=== PATIENT | female | born 1955 | race Caucasian/White ===

== ENCOUNTER 2023-04-06 09:09 | Observation (INO) | payer MEDICARE ==
[~2023-04-06] VITALS: Ht 152 cm; Wt 54.0 kg
--- NOTE | 2023-04-06 09:18 | ED Chest Pain ---
General Chief Complaint: Chest Pain Stated Complaint: RIGHT SIDED- POSSIBLE HEART ATTACK Source: patient Exam Limitations: no limitations History of Present Illness Date Seen by Provider: Apr 06, 2023 Time Seen by Provider: 09:17 Initial Comments Patient is a 68-year-old female with a history of coronary artery disease and smoking who presents to the emergency room with a chief complaint of right arm pain. Patient states that she woke up around 530 or 6 AM with right arm pain and was concerned that she might of been having a heart attack. She endorses shortness of breath and some nausea with the pain. She rates it at a "6". It does not radiate she does not have chest pain, jaw pain or back pain. She last had a stent placed about 10 years ago. She states she is compliant with her daily medications. Her epidemiology intern is Dr. Mosley at [facility] in [place]. Patient also states that her right arm and right leg have felt a little weak intermittently over the last 2 days. She does have a mild headache currently. She has no prior history of stroke. She denies recent illness such as fevers, chills, productive cough. No abdominal pain, nausea or vomiting. No diarrhea or urinary complaints. No swelling in her legs or calf pain. She is a chronic daily smoker. She states that she waited until her son and xthwkxya-kn-rel got out of bed this morning before coming to the emergency room. She did take 1 sublingual nitroglycerin prior to arrival for the arm pain. She did not take any of her other prescribed daily medications. We will hold aspirin until we can evaluate her CT head noncontrast. Timing/Duration: 1-3 hours Severity/Quality: moderate, aching Location: other (right arm) Radiation: no radiation Activities at Onset: sleep Prior CP/Workup: cardiac cath ASA po MACARONI PRESS OPERATOR: No NTG SL MACARONI PRESS OPERATOR: No Associated Symptoms: nausea/vomiting, shortness of breath Allergies and Home Medications Allergies Coded Allergies: No Known Drug Allergies (Unverified , 04/06/23) Patient Home Medication List Home Medication List Reviewed: Yes Amlodipine Besylate (Amlodipine Besylate) 5 Mg Tablet, 2.5 MG PO DAILY, (Reported) Entered as Reported by: AREN LOUIS on 04/06/23 3261 Last Action: Reviewed Aspirin (Aspirin EC) 81 Mg Tablet., 81 MG PO DAILY Prescribed by: ARUNA MORA on 04/08/23941 Atorvastatin Calcium (Atorvastatin Calcium) 40 Mg Tablet, 40 MG PO DAILY, (Reported) Entered as Reported by: AREN LOUIS on 04/06/231428 Last Action: Reviewed Carvedilol (Carvedilol) 3.125 Mg Tablet, 3.125 MG PO BID Prescribed by: ARUNA MORA on 04/08/23941 Empagliflozin (Jardiance) 10 Mg Tablet, 10 MG PO DAILY Prescribed by: ARUNA MORA on 04/08/23941 Losartan Potassium (Losartan Potassium) 25 Mg Tablet, 25 MG PO DAILY Prescribed by: ARUNA MORA on 04/08/23941 Nitroglycerin (Nitroglycerin) 0.4 Mg Tab.subl, 0.4 MG PO for CHEST PAIN (ANGINA), (Reported) Entered as Reported by: AREN LOUIS on 04/06/231428 Last Action: Reviewed Ticagrelor (Brilinta) 90 Mg Tablet, 90 MG PO BID Prescribed by: ARUNA MORA on 04/08/23941 Discontinued Medications Clopidogrel Bisulfate (Clopidogrel) 75 Mg Tablet, 75 MG PO DAILY, (Reported) Entered as Reported by: AREN LOUIS on 04/06/231428 Last Action: Reviewed Review of Systems Review of Systems Constitutional: see HPI EENTM: No Symptoms Reported Respiratory: Shortness of Air Cardiovascular: No Symptoms Reported Gastrointestinal: Nausea Genitourinary: No Symptoms Reported Musculoskeletal: other (right arm pain) Skin: no symptoms reported Psychiatric/Neurological: Weakness (right arm and leg) All Other Systems Reviewed Negative Unless Noted: Yes Physical Exam Vital Signs Vital Signs - First Documented 04/06/23 09:10 Pulse 84 Resp 18 B/P (MAP) 142/70 (94) Pulse Ox 97 Capillary Refill : Height, Weight, BMI Height: '" Weight: lbs. oz. kg; BMI Method: General Appearance: No Apparent Distress, Thin HEENT: PERRL/EOMI Neck: Normal Inspection Respiratory: Lungs Clear, No Accessory Muscle Use, No Respiratory Distress, Decreased Breath Sounds Cardiovascular: Regular Rate, Rhythm, Normal Peripheral Pulses Gastrointestinal: Non Tender, Soft Extremity: Normal Capillary Refill, Normal Inspection, Normal Range of Motion, Non Tender, No Calf Tenderness, No Pedal Edema Neurologic/Psychiatric: Alert, Oriented x3, Normal Mood/Affect, Motor Weakness (minimal weakness to right arm; normal strength bilat LE) Skin: Normal Color, Warm/Dry Progress/Results/Core Measures Results/Orders Lab Results Laboratory Tests Test 04/06/23 09:23 Range/Units White Blood Count 9.6 4.3-11.0 10^3/uL Red Blood Count 5.06 3.80-5.11 10^6/uL Hemoglobin 16.2 H 11.5-16.0 g/dL Hematocrit 48 35-52 % Mean Corpuscular Volume 94 80-99 fL Mean Corpuscular Hemoglobin 32 25-34 pg Mean Corpuscular Hemoglobin Concent 34 32-36 g/dL Red Cell Distribution Width 11.8 10.0-14.5 % Platelet Count 241 130-400 10^3/uL Mean Platelet Volume 9.4 9.0-12.2 fL Immature Granulocyte % (Auto) 0 % Neutrophils (%) (Auto) 66 42-75 % Lymphocytes (%) (Auto) 26 12-44 % Monocytes (%) (Auto) 5 0-12 % Eosinophils (%) (Auto) 1 0-10 % Basophils (%) (Auto) 1 0-10 % Neutrophils # (Auto) 6.4 1.8-7.8 10^3/uL Lymphocytes # (Auto) 2.5 1.0-4.0 10^3/uL Monocytes # (Auto) 0.5 0.0-1.0 10^3/uL Eosinophils # (Auto) 0.1 0.0-0.3 10^3/uL Basophils # (Auto) 0.1 0.0-0.1 10^3/uL Immature Granulocyte # (Auto) 0.0 0.0-0.1 10^3/uL Prothrombin Time 13.4 12.2-14.7 SEC INR Comment 1.0 0.8-1.4 Activated Partial Thromboplast Time 27 24-35 SEC D-Dimer 0.28 0.00-0.49 UG/ML Sodium Level 142 135-145 MMOL/L Potassium Level 4.0 3.6-5.0 MMOL/L Chloride Level 109 H 98-107 MMOL/L Carbon Dioxide Level 23 21-32 MMOL/L Anion Gap 10 5-14 MMOL/L Blood Urea Nitrogen 14 7-18 MG/DL Creatinine 0.99 0.60-1.30 MG/DL Estimat Glomerular Filtration Rate 62 BUN/Creatinine Ratio 14 Glucose Level 109 H 70-105 MG/DL Calcium Level 9.6 8.5-10.1 MG/DL Corrected Calcium 9.4 8.5-10.1 MG/DL Magnesium Level 1.9 1.6-2.4 MG/DL Total Bilirubin 0.6 0.1-1.0 MG/DL Aspartate Amino Transf (AST/SGOT) 20 5-34 U/L Alanine Aminotransferase (ALT/SGPT) 17 0-55 U/L Alkaline Phosphatase 111 40-136 U/L Troponin I < 0.028 <0.028 NG/ML Total Protein 6.8 6.4-8.2 GM/DL Albumin 4.2 3.2-4.5 GM/DL My Orders Orders - SONJA VERA MD Ekg Tracing (04/06/23 09:17) Cbc With Automated Diff (04/06/23 09:30) Magnesium (04/06/23 09:30) Chest 1 View, Ap/Pa Only (04/06/23 09:30) Comprehensive Metabolic Panel (04/06/23 09:30) Protime With Inr (04/06/23 09:30) Partial Thromboplastin Time (04/06/23 09:30) O2 (04/06/23 09:30) Monitor-Rhythm Ecg Trace Only (04/06/23 09:30) Lipid Panel (04/07/23 06:00) Ed Iv/Invasive Line Start (04/06/23 09:30) Troponin I Tash (04/06/23 09:30) Ct Head Wo-R/O Stroke (04/06/23 09:30) Fibrin Degradation Products (04/06/23 09:30) Aspirin Chewable Tablet (Baby Aspirin Ch (04/06/23 10:45) Ed Admission (Communication) (04/06/23 11:15) Nicotine Patch (Nicoderm Patch) (04/06/23 11:15) Code/Resuscitation (04/06/23 11:15) Medications Given in ED Vital Signs/I&O 04/06/23 09:10 Pulse 84 Resp 18 B/P (MAP) 142/70 (94) Pulse Ox 97 Progress Progress Note : Time: 11:38 Progress Note Patient seen and evaluated by me, evaluation today includes physical exam, "chest pain protocol" to include CBC, Chem-12, coags, EKG, chest x-ray and troponin level, ddimer and CT head without contrast. Pertinent physical exam findings thin elderly 68-year-old female in no acute distress. Heart is regular in the 80s, lungs are diminished throughout, no crackles, rales or wheezes. No lower extremity edema. Abdominal exam is benign. No focal neurologic deficits. Vital signs reviewed and within normal limits. Not hypoxic on room air. Differential diagnosis based on history and physical exam, acute coronary syndrome, acute exacerbation of COPD, bronchitis, TIA, musculoskeletal pain. Labs, EKG and imaging independently reviewed reviewed and interpreted by me. EKG shows normal sinus rhythm at 81 bpm with a left bundle branch block. No other EKGs available in the system for comparison. Chest x-ray read by the radiologist shows mild increased pulmonary vascular congestion. CBC is normal. Chem-12 is normal, troponin is undetectable. Coags and D-dimer are within normal limits. CT head noncontrast showed no acute intracranial abnormality. Patient is treated in the emergency department with 324 mg of baby aspirin. I discussed the presentation, work-up and evaluation with Dr. Kent, epidemiology intern on-call. Will admit observation for serial troponins and further monitoring. Case was also discussed with Dr. Carrillo on for the hospitalist service. Patient has no concerning findings for NSTEMI/ACS at this time. She is not wheezing or hypoxic. No concerning findings for bronchitis. She may have issues with her right sided intermittent weakness with TIAs. She is on Plavix. She tells me she has never had her carotids evaluated. She is concerned about not being able to smoke. Nicotine patch has been ordered. Further per Dr. Carrillo and Dr. Kent. Initial ECG Impression Date: Apr 06, 2023 Initial ECG Impression Time: 09:20 Initial ECG Rate: 81 Initial ECG Rhythm: Normal Sinus Initial ECG Intervals CO 155 QRS 147 QTc 440 Comment no ectopy; LBBB; slight ST depression/t wave inversion V6 Diagnostic Imaging Comments [facility] [place], [place] NAME: SHERICE PÉREZ [facility] REC#: [id number] PT STATUS: REG ER : 1955 PHYSICIAN: SONJA VERA MD ADMIT DATE: 04/06/23/ER Signed Date of Exam:04/06/23 CHEST 1 VIEW, AP/PA ONLY EXAMINATION: Chest 1 view HISTORY: Chest pain COMPARISON: None available. FINDINGS: The lungs are hyperinflated. There is mild edema. No pneumonia. No pleural effusion or pneumothorax. Heart size is normal. IMPRESSION: 1. Mild edema. Dictated by: Dictated on workstation # [email or web address] Dict: 04/06/23 1019 Trans: 04/06/23 1025 ARELIS [id number] Interpreted by: MY LITTLE MD Electronically signed by: MY LITTLE MD 04/06/23 1025 Diagonstic Imaging: CT Comments [facility] [place], [place] NAME: SHERICE PÉREZ [facility] REC#: [id number] PT STATUS: REG ER : 1955 PHYSICIAN: SONJA VERA MD ADMIT DATE: 04/06/23/ER Signed Date of Exam:04/06/23 CT HEAD WO-R/O STROKE EXAMINATION: CT head without contrast. TECHNIQUE: Multiple contiguous axial images were obtained through the brain without the use of intravenous contrast. All CT scans use one or more of the following dose optimizing techniques: automated exposure control, MA and/or KvP adjustment based on patient size and exam type or iterative reconstruction. HISTORY: Neuro deficit COMPARISON: None available. FINDINGS: The alston-white matter differentiation is normal. No mass effect or midline shift. The ventricles are normal in size and configuration. Basilar cisterns are patent. There are no intra- or extra-axial fluid collections. There is no intracranial hemorrhage. The orbits are normal. Paranasal sinuses are normal. Mastoid air cells are clear. No soft tissue abnormality is seen. No osseus lesions or fractures are seen. IMPRESSION: 1. No acute intracranial abnormality. Dictated by: Dictated on workstation # [email or web address] Dict: 04/06/23 1021 Trans: 04/06/23 1023 [facility] [id number] Interpreted by: MY LITTLE MD Electronically signed by: MY LITTLE MD 04/06/23 1023 Counseling-Symptomatic: 3-10 Minutes Follow-up with PCP to: Discuss Further Options CP/AMI: Aspirin, ECG CVA/SNYCOPE: ECG Departure Communication (Admissions) Time/Spoke to Admitting Phy: 11:[address] Carrillo, hospitalist (admit to cardiac step down) Impression Primary Impression: Right arm pain Additional Impressions: History of CAD (coronary artery disease) Tobacco abuse Disposition: ADMITTED INPATIENT Condition: Stable Admissions Decision to Admit Reason: Admit from ER (General) Decision to Admit/Date: Apr 06, 2023 Time/Decision to Admit Time: 11:40 Departure-Patient Inst. Scripts Empagliflozin (Jardiance) 10 Mg Tablet 10 MG PO DAILY for 30 Days, #30 TAB Prov: ARUNA MORA MD 04/08/23 Aspirin (Aspirin EC) 81 Mg Tablet.dr 81 MG PO DAILY for 30 Days, #30 TAB Prov: ARUNA MORA MD 04/08/23 Losartan Potassium (Losartan Potassium) 25 Mg Tablet 25 MG PO DAILY for 30 Days, #30 TAB Prov: ARNUA MORA MD 04/08/23 Carvedilol (Carvedilol) 3.125 Mg Tablet 3.125 MG PO BID for 30 Days, #60 TAB Prov: ARUNA MORA MD 04/08/23 Ticagrelor (Brilinta) 90 Mg Tablet 90 MG PO BID for 30 Days, #60 TAB Prov: ARUNA MORA MD 04/08/23 SONJA VERA MD Apr 06, 2023 09:18
[2023-04-06 09:39] LABS: BASOPHILS # (AUTO) 0.1 10^3/uL (0.0-0.1); BASOPHILS % (AUTO) 1 % (0-10); EOSINOPHILS # (AUTO) 0.1 10^3/uL (0.0-0.3); EOSINOPHILS % (AUTO) 1 % (0-10); HEMATOCRIT 48 % (35-52); HEMOGLOBIN 16.2 g/dL (11.5-16.0); LYMPHOCYTES # (AUTO) 2.5 10^3/uL (1.0-4.0); LYMPHOCYTES % (AUTO) 26 % (12-44); MEAN CORPUSCULAR HEMOGLOBIN 32 pg (25-34); MEAN CORPUSCULAR HGB CONC 34 g/dL (32-36); MEAN CORPUSCULAR VOLUME 94 fL (80-99); MEAN PLATELET VOLUME 9.4 fL (9.0-12.2); MONOCYTES # (AUTO) 0.5 10^3/uL (0.0-1.0); MONOCYTES % (AUTO) 5 % (0-12); NEUTROPHILS # (AUTO) 6.4 10^3/uL (1.8-7.8); NEUTROPHILS % (AUTO) 66 % (42-75); PLATELET COUNT 241 10^3/uL (130-400); WHITE BLOOD COUNT 9.6 10^3/uL (4.3-11.0)
[2023-04-06 09:43] LABS: ALBUMIN 4.2 GM/DL (3.2-4.5); CHLORIDE 109 MMOL/L (98-107); SODIUM 142 MMOL/L (135-145)
[2023-04-06 09:44] LABS: CALCIUM 9.6 MG/DL (8.5-10.1)
[2023-04-06 09:45] LABS: GLUCOSE 109 MG/DL (70-105); TOTAL PROTEIN 6.8 GM/DL (6.4-8.2)
[2023-04-06 09:46] LABS: CARBON DIOXIDE 23 MMOL/L (21-32); PROTHROMBIN TIME PATIENT 13.4 SEC (12.2-14.7)
[2023-04-06 09:47] LABS: BILIRUBIN,TOTAL 0.6 MG/DL (0.1-1.0)
[2023-04-06 09:49] LABS: ALKALINE PHOSPHATASE 111 U/L (40-136); CREATININE SERUM 0.99 MG/DL (0.60-1.30); FIBRIN DEGRADATION PRODUCTS 0.28 UG/ML (0.00-0.49); GFR ESTIMATED 62
[2023-04-06 09:50] LABS: BUN/CREATININE RATIO 14
[2023-04-06 09:52] LABS: ALANINE AMINOTRANSFERASE 17 U/L (0-55); MAGNESIUM 1.9 MG/DL (1.6-2.4)
--- NOTE | 2023-04-06 10:22 | Diagnostic Imaging Report ---
EXAMINATION: Chest 1 view HISTORY: Chest pain COMPARISON: None available. FINDINGS: The lungs are hyperinflated. There is mild edema. No pneumonia. No pleural effusion or pneumothorax. Heart size is normal. IMPRESSION: 1. Mild edema. Dictated by: Dictated on workstation # [email or web address]
--- NOTE | 2023-04-06 10:25 | Diagnostic Imaging Report ---
EXAMINATION: CT head without contrast. TECHNIQUE: Multiple contiguous axial images were obtained through the brain without the use of intravenous contrast. All CT scans use one or more of the following dose optimizing techniques: automated exposure control, MA and/or KvP adjustment based on patient size and exam type or iterative reconstruction. HISTORY: Neuro deficit COMPARISON: None available. FINDINGS: The alston-white matter differentiation is normal. No mass effect or midline shift. The ventricles are normal in size and configuration. Basilar cisterns are patent. There are no intra- or extra-axial fluid collections. There is no intracranial hemorrhage. The orbits are normal. Paranasal sinuses are normal. Mastoid air cells are clear. No soft tissue abnormality is seen. No osseus lesions or fractures are seen. IMPRESSION: 1. No acute intracranial abnormality. Dictated by: Dictated on workstation # [email or web address]
[2023-04-06] MEDS ORDERED: ASPIRIN 81 MG CHEW (CHILDREN'S ASA) PO ONE (10:45)
[2023-04-06] MEDS ORDERED: NICOTINE 21 MG (NICODERM) PATCH TD ONE (11:15)
--- NOTE | 2023-04-06 12:11 | History & Physical-Hospitalist ---
History of Present Illness HPI/Chief Complaint Pt is a 89yoCF with a PMH of CAD and stent, tobacco abuse, HLD who presented to the ER due to chest pain and right sided weakness. She states the right sided weakness started 3 days ago and she didn't think much of it but it has persistent. She denies any specific deficits but that it's just not "up to par." She developed chest pain last night and then had right arm pain as well. She decided to seek evaluation in the ER today because it persistent. She did take a nitro and it helped. Given her risk factors decision was made to admit. Source: patient Date Seen 04/06/23 Time Seen by a Provider: 12:04 Attending Physician No,Local Physician PCP Admitting Physician: Larissa Carrillo MD Attending Physician: Larissa Carrillo MD Referring Physician Date of Admission Apr 06, 2023 at 11:18 Home Medications & Allergies Home Medications Reviewed patient Home Medication Reconciliation performed by pharmacy medication reconciliations radiocommunications technician and/or nursing. Patients Allergies have been reviewed. Allergies Allergies Coded Allergies No Known Drug Allergies (Unverified04/06/23) Past Ojffzpr-Iomuif-Qtyhnr Hx Patient Social History Tobacco Use?: Yes Tobacco type used: Cigarettes Smoking Status: Current Everyday Smoker Substance use?: No Alcohol Use?: No Pt feels they are or have been: No Current Status Advance Directives: No Communicates: Verbally Primary Language: Latvian Preferred Spoken Language: Latvian Is interpretation needed?: No Implanted or Applied Medical D: Stents Past Medical History Coronary Artery Disease, High Cholesterol Family Medical History Reviewed Nursing Family Hx No Pertinent Family Hx Review of Systems Constitutional: see HPI Physical Exam Physical Exam Vital Signs Vital Signs - First Documented 04/06/23 09:10 Pulse 84 Resp 18 B/P (MAP) 142/70 (94) Pulse Ox 97 Capillary Refill : Less Than 3 Seconds Height, Weight, BMI Height: '" Weight: lbs. oz. kg; 17.00 BMI Method: General Appearance: No Apparent Distress, Chronically ill, Thin Respiratory: Lungs Clear, No Respiratory Distress Cardiovascular: Regular Rate, Rhythm, No Murmur Gastrointestinal: Normal Bowel Sounds, Non Tender, Soft Extremity: No Calf Tenderness, No Pedal Edema Neurologic/Psychiatric: Alert, Oriented x3; No Aphasia, No Facial Droop; Other (moves all extremities without difficulty, no appreciable deficit) Results Results/Procedures Labs Laboratory Tests 04/06/23 09:23 Patient resulted labs reviewed. Imaging: Reviewed Imaging Report [facility] [place] [place] NAME: SHERICE PÉREZ [facility] REC#: [id number] PT STATUS: REG ER : 1955 PHYSICIAN: SONJA VERA MD ADMIT DATE: 04/06/23/ER Signed Date of Exam:04/06/23 CHEST 1 VIEW, AP/PA ONLY EXAMINATION: Chest 1 view HISTORY: Chest pain COMPARISON: None available. FINDINGS: The lungs are hyperinflated. There is mild edema. No pneumonia. No pleural effusion or pneumothorax. Heart size is normal. IMPRESSION: 1. Mild edema. Dictated by: Dictated on workstation # [email or web address] Dict: 04/06/23 1019 Trans: 04/06/23 1025 [facility] [id number] Interpreted by: MY LITTLE MD Electronically signed by: MY LITTLE MD 04/06/23 1025 [facility] [place] [place] NAME: SHERICE PÉREZ [facility] REC#: [id number] PT STATUS: REG ER : 1955 PHYSICIAN: SONJA VERA MD ADMIT DATE: 04/06/23/ER Signed Date of Exam:04/06/23 CT HEAD WO-R/O STROKE EXAMINATION: CT head without contrast. TECHNIQUE: Multiple contiguous axial images were obtained through the brain without the use of intravenous contrast. All CT scans use one or more of the following dose optimizing techniques: automated exposure control, MA and/or KvP adjustment based on patient size and exam type or iterative reconstruction. HISTORY: Neuro deficit COMPARISON: None available. FINDINGS: The alston-white matter differentiation is normal. No mass effect or midline shift. The ventricles are normal in size and configuration. Basilar cisterns are patent. There are no intra- or extra-axial fluid collections. There is no intracranial hemorrhage. The orbits are normal. Paranasal sinuses are normal. Mastoid air cells are clear. No soft tissue abnormality is seen. No osseus lesions or fractures are seen. IMPRESSION: 1. No acute intracranial abnormality. Dictated by: Dictated on workstation # [email or web address] Dict: 04/06/23 1021 Trans: 04/06/23 1023 [facility] [id number] Interpreted by: MY LITTLE MD Electronically signed by: MY LITTLE MD 04/06/23 1023 Assessment/Plan Admission Diagnosis Chest pain Admission Status: Observation Reason for Inpatient Admission: see below Assessment and Plan Chest pain CAD with h/o of stents HLD HTN Troponin negative Received ASA in the ER Cardiology consulted, appreciate recs Trend troponins Telemetry Continue home meds when med rec done Right sided weakness No appreciable on exam COnsider MRI in AM Outside the window for TPA CT head with no acute findings PT/OT in AM Diagnosis/Problems Diagnosis/Problems (1) Chest pain (2) Weakness of right upper extremity (3) Tobacco abuse (4) History of coronary artery stent placement Clinical Quality Measures AMI/AHF: ASA po Prior to arrival: No Smoking Cessation Counseling: Counseling-Symptomatic: 3-10 Minutes LARISSA CARRILLO MD Apr 06, 2023 12:11
[2023-04-06] MEDS ORDERED: NITROGLYCERIN 0.4 MG SL TABS BTL 25'S SL PRN (12:15)
[2023-04-06] MEDS ORDERED: BENZONATATE 100 MG (TESSALON) CAPSULE PO PRN (12:15)
[2023-04-06] MEDS ORDERED: ACETAMINOPHEN 500 MG TAB (TYLENOL) PO PRN (12:15)
[2023-04-06] MEDS ORDERED: ONDANSETRON 4 MG/2 ML (SDV) Z0FRAN IVP PRN (12:15)
[2023-04-06] MEDS ORDERED: morphine INJ 4 MG/ML 1 ML (VIAL/SYRINGE) IV PRN (12:15)
[2023-04-06] MEDS ORDERED: PATIENT MAY USE OWN MEDS, ALL PO SCH (12:15)
[2023-04-06] MEDS ORDERED: ANTACID SUSP 30 ML UDC (MYLANTA) PO PRN (12:15)
[2023-04-06] MEDS ORDERED: MELATONIN 3 MG TABLET PO PRN (12:15)
[2023-04-06] MEDS ORDERED: ONDANSETRON 4 MG/2 ML (SDV) Z0FRAN IV PRN (12:15)
[2023-04-06] MEDS ORDERED: MILK OF MAGNESIA 400 MG/5 ML 30 ML UDC PO PRN (12:15)
[2023-04-06] MEDS ORDERED: CLOPIDOGREL 75 MG (PLAVIX) TABLET PO NR ×2 (12:30→15:00)
[2023-04-06] MEDS ORDERED: PATIENT MAY USE OWN MEDS, ALL MC SCH (12:30)
[2023-04-06] MEDS ORDERED: ATOR40TA70 PO (14:29)
[2023-04-06] MEDS ORDERED: CLOP75TA28 PO (14:29)
[2023-04-06] MEDS ORDERED: NITR0.4T42 PO (14:29)
[2023-04-06] MEDS ORDERED: AMLO-250 PO ×2 (14:29→14:47)
[2023-04-06 15:50] VITALS: BP 117/53
--- NOTE | 2023-04-06 17:37 | Consultation-Cardiology ---
HPI-Cardiology Cardiology Consultation: Date of Consultation 04/06/23 Date of Admission Attending Physician Suzy,Local Physician Admitting Physician Admitting Physician: Lucinda Carrillo MD Attending Physician: Lucinda Carrillo MD Consulting Physician Penelope MORSE MD HPI: Time Seen by a Provider: 17:34 Chief Complaint: Chest discomfort This is a 68-year-old lady with history of active smoking, CAD, PCI. She follows with milk treater in [place]. She presents with mild chest discomfort and right upper extremity weakness. She is not complaining of any chest discomfort when I saw the patient. Review of Systems-Cardiology Review of Systems Constitutional: no symptoms reported Eyes: no symptoms reported Ears/Nose/Throat: no symptoms reported Respiratory: no symptoms reported Cardiovascular: chest pain Gastrointestinal: no symptoms reported Psychiatric/Neurological: weakness Hematologic: no symptoms reported All Other Systems Reviewed Negative Unless Noted: Yes AXB-Ixuybo-Iuqvyr Hx Patient Social History Smoking Status: Current Everyday Smoker Alcohol Use?: No Pt feels they are or have been: No Tobacco type used: Cigarettes Past Medical History PMH As described under Assessment. Allergies and Home Medications Allergies Coded Allergies: No Known Drug Allergies (Unverified , 04/06/23) Patient Home Medication List Home Medication List Reviewed: Yes Amlodipine Besylate (Amlodipine Besylate) 5 Mg Tablet, 2.5 MG PO DAILY, (Reported) Entered as Reported by: AREN LOUIS on 04/06/23 1447 Last Action: New Order Atorvastatin Calcium (Atorvastatin Calcium) 40 Mg Tablet, 40 MG PO DAILY, (Reported) Entered as Reported by: AREN LOUIS on 04/06/231428 Last Action: New Order Clopidogrel Bisulfate (Clopidogrel) 75 Mg Tablet, 75 MG PO DAILY, (Reported) Entered as Reported by: AREN LOUIS on 04/06/231428 Last Action: New Order Nitroglycerin (Nitroglycerin) 0.4 Mg Tab.subl, 0.4 MG PO for CHEST PAIN (ANNIKA NA), (Reported) Entered as Reported by: AREN LOUIS on 04/06/231428 Last Action: New Order Exam Vital Signs Vital Signs Date Time Temp Pulse Resp B/P (MAP) Pulse Ox O2 Delivery O2 Flow Rate FiO2 04/06/23 15:50 36.6 66 20 117/53 (74) 95 Room Air Physical Exam Constitutional: No distress. Respiratory: Bilateral lung sounds heard. CVS: Normal heart sounds. Regular rate. No significant pedal edema. Labs Laboratory Tests Test 04/06/23 09:23 Range/Units White Blood Count 9.6 4.3-11.0 10^3/uL Red Blood Count 5.06 3.80-5.11 10^6/uL Hemoglobin 16.2 H 11.5-16.0 g/dL Hematocrit 48 35-52 % Mean Corpuscular Volume 94 80-99 fL Mean Corpuscular Hemoglobin 32 25-34 pg Mean Corpuscular Hemoglobin Concent 34 32-36 g/dL Red Cell Distribution Width 11.8 10.0-14.5 % Platelet Count 241 130-400 10^3/uL Mean Platelet Volume 9.4 9.0-12.2 fL Immature Granulocyte % (Auto) 0 % Neutrophils (%) (Auto) 66 42-75 % Lymphocytes (%) (Auto) 26 12-44 % Monocytes (%) (Auto) 5 0-12 % Eosinophils (%) (Auto) 1 0-10 % Basophils (%) (Auto) 1 0-10 % Neutrophils # (Auto) 6.4 1.8-7.8 10^3/uL Lymphocytes # (Auto) 2.5 1.0-4.0 10^3/uL Monocytes # (Auto) 0.5 0.0-1.0 10^3/uL Eosinophils # (Auto) 0.1 0.0-0.3 10^3/uL Basophils # (Auto) 0.1 0.0-0.1 10^3/uL Immature Granulocyte # (Auto) 0.0 0.0-0.1 10^3/uL Prothrombin Time 13.4 12.2-14.7 SEC INR Comment 1.0 0.8-1.4 Activated Partial Thromboplast Time 27 24-35 SEC D-Dimer 0.28 0.00-0.49 UG/ML Sodium Level 142 135-145 MMOL/L Potassium Level 4.0 3.6-5.0 MMOL/L Chloride Level 109 H 98-107 MMOL/L Carbon Dioxide Level 23 21-32 MMOL/L Anion Gap 10 5-14 MMOL/L Blood Urea Nitrogen 14 7-18 MG/DL Creatinine 0.99 0.60-1.30 MG/DL Estimat Glomerular Filtration Rate 62 BUN/Creatinine Ratio 14 Glucose Level 109 H 70-105 MG/DL Calcium Level 9.6 8.5-10.1 MG/DL Corrected Calcium 9.4 8.5-10.1 MG/DL Magnesium Level 1.9 1.6-2.4 MG/DL Total Bilirubin 0.6 0.1-1.0 MG/DL Aspartate Amino Transf (AST/SGOT) 20 5-34 U/L Alanine Aminotransferase (ALT/SGPT) 17 0-55 U/L Alkaline Phosphatase 111 40-136 U/L Troponin I < 0.028 <0.028 NG/ML Total Protein 6.8 6.4-8.2 GM/DL Albumin 4.2 3.2-4.5 GM/DL ECG Impression ECG Initial ECG Rhythm: Normal Sinus Initial ECG Intervals Left bundle branch block A/P-Cardiology Assessment/Admission Diagnosis Chest pain, CAD/PCI, Active smoking, right-sided weakness Plan Serial troponin. First test is negative. Continue dual antiplatelet therapy. If second set of troponin is negative do Lexiscan stress test tomorrow. Smoking cessation was strongly recommended. Work-up of right-sided weakness deferred to medicine. Penelope MORSE MD Apr 06, 2023 17:37
[2023-04-06 19:44] VITALS: BP 121/69
[2023-04-06 23:23] VITALS: BP 108/76
[2023-04-07] VITALS (7 sets, daily range): BP systolic 105–128; BP diastolic 56–77
[2023-04-07 05:26] LABS: HEMATOCRIT 45 % (35-52); HEMOGLOBIN 15.5 g/dL (11.5-16.0); MEAN CORPUSCULAR HEMOGLOBIN 32 pg (25-34); MEAN CORPUSCULAR HGB CONC 35 g/dL (32-36); MEAN CORPUSCULAR VOLUME 93 fL (80-99); MEAN PLATELET VOLUME 9.9 fL (9.0-12.2); PLATELET COUNT 218 10^3/uL (130-400); WHITE BLOOD COUNT 7.9 10^3/uL (4.3-11.0)
[2023-04-07 05:39] LABS: POTASSIUM 3.9 MMOL/L (3.6-5.0)
[2023-04-07 05:45] LABS: CREATININE SERUM 0.97 MG/DL (0.60-1.30)
[2023-04-07] MEDS ORDERED: CATHETER FLUSH 10 ML SYR IVP PRN ×2 (07:30)
[2023-04-07] MEDS ORDERED: REGADENOSON 0.4 MG/5 ML SYR (LEXISCAN) IV ONE ×2 (08:55→09:30)
[2023-04-07] MEDS ORDERED: CLOPIDOGREL 75 MG (PLAVIX) TABLET PO SCH (09:00)
[2023-04-07] MEDS ORDERED: ASPIRIN E.C. 81 MG (ECOTRIN) TAB PO SCH (09:00)
--- NOTE | 2023-04-07 10:46 | Physical Therapy Progress Note ---
Therapy Progress Note Patient and RN both report she is up independently without difficulty. No skilled PT indicated. MANA KING PT Apr 07, 2023 10:46
--- NOTE | 2023-04-07 10:54 | Occ Therapy Progress Note ---
Therapy Progress Note Patient and RN both report she is up independently without difficulty. No skilled OT indicated. INGRID MADERA OT Apr 07, 2023 10:54
[2023-04-07] MEDS: amLODIPine 5 MG (NORVASC) TAB PO SCH ×2 (10:57→11:09)
[2023-04-07] MEDS ORDERED: NS IV 1000 ML 1,000 ML ONE (13:52)
[2023-04-07] MEDS ORDERED: HEParin (CATH LAB) 2,000 ML IV ONE (13:52)
[2023-04-07] MEDS ORDERED: LIDOCAINE 1% INJ 20 ML VIAL ONE (13:52)
[2023-04-07] MEDS ORDERED: VERAPAMIL 5 MG/2 ML (CALAN) VIAL IV ONE (13:56)
[2023-04-07] MEDS ORDERED: MIDAZOLAM 5 MG/5 ML (VERSED) VIAL ONE (13:56)
[2023-04-07] MEDS ORDERED: fentaNYL INJ 100 MCG/2 ML AMP ONE (13:56)
[2023-04-07] MEDS ORDERED: HEParin 1000 UNIT/ML (10ML VIAL) FOR BOLUS ONE ×2 (13:56→15:24)
[2023-04-07] MEDS ORDERED: NITRO DRIP 25000 MCG/D5W 250 ML IV ONE (13:57)
--- NOTE | 2023-04-07 14:13 | Cardiology Progress Note ---
Cardiology SOAP Progress Note Subjective: No further chest pain Objective: I&O/Vital Signs 04/07/23 04/07/23 04/07/23 04/07/23 03:26 07:00 07:15 07:48 Temp 36.1 36.4 Pulse 62 53 57 60 Resp 20 20 11 B/P (MAP) 108/72 (84) 105/76 (86) 105/76 (86) Pulse Ox 96 93 98 O2 Delivery Room Air Room Air 04/07/23 04/07/23 08:00 11:31 Temp 36.1 Pulse 66 Resp 12 B/P (MAP) 122/56 (78) Pulse Ox 97 97 O2 Delivery Room Air Room Air 04/07/23 00:00 Intake Total 800 ml Balance 800 ml Constitutional: AAO x 3 Respiratory: chest is bilaterally symmetric, lungs clear to auscultation Cardiovascular: regular rate-rhythm, S1 and S2 Gastrointestional: soft Extremities: No pedal edema Neurologic/Psychiatric: no motor/sensory deficits, alert, normal mood/affect, oriented x 3 Skin: normal color Results/Procedures: Labs Laboratory Tests 04/06/23 18:04: Troponin I < 0.028 04/07/23 05:01: White Blood Count 7.9, Red Blood Count 4.80, Hemoglobin 15.5, Hematocrit 45, Mean Corpuscular Volume 93, Mean Corpuscular Hemoglobin 32, Mean Corpuscular Hemoglobin Concent 35, Red Cell Distribution Width 11.7, Platelet Count 218, Mean Platelet Volume 9.9, Sodium Level 138, Potassium Level 3.9, Chloride Level 109H, Carbon Dioxide Level 23, Anion Gap 6, Blood Urea Nitrogen 15, Creatinine 0.97, Estimat Glomerular Filtration Rate 64, BUN/Creatinine Ratio 15, Glucose Level 105, Calcium Level 9.0, Triglycerides Level 100, Cholesterol Level 165, LDL Cholesterol Direct 100, VLDL Cholesterol 20, HDL Cholesterol 51 A/P: Assessment/Dx: Chest pain, CAD/PCI, Active smoking, right-sided weakness Plan: Negative serial troponin.Nuclear stress test done this morning showed LVEF of 16%. TID 1.15. Mild Partial Reversibility in the anterior, septal, apical area. I discussed at length with the patient and recommended coronary angiography, echocardiogram. If the echocardiogram reveals LV systolic dysfunction as well then she will need a LifeVest for primary prevention of sudden cardiac . Informed consent taken for coronary angiography and possible intervention. 1% risk of complication including was discussed. Patient accepted all risks and would like to proceed with the procedure. Smoking cessation was strongly recommended. Work-up of right-sided weakness deferred to medicine. Clinical Quality Measures AMI/AHF: ASA po Prior to arrival: No Smoking Cessation Counseling: Counseling-Symptomatic: 3-10 Minutes Penelope MORSE MD Apr 07, 2023 14:13
--- NOTE | 2023-04-07 14:13 | Cardiac Procedure Note-CS/ASA ---
Pre-Procedure Note Pre-Op Procedure Note Date H&P Reviewed: Apr 07, 2023 Time H&P Reviewed: 14:13 History & Physical: H&P Reviewed, Patient Examed, No changes noted Pre-Operative Diagnosis: chest pain, cardiomyopathy, abn stress test Moderate Sedation PreProcedure Time 14:13 ASA Score 3 Airway Lungs Heart ASA score ASA 1: a normal healthy patient ASA 2: a patient with a mild systemic disease (mid diabetes, controlled hypertension, obesity ASA 3: a patient with a severe systemic disease that limits activity (angina, COPD, prior Myocardial infarction) ASA 4: a patient with an incapacitating disease that is a constant threat to life (CHF, renal failure) ASA 5: a moribund patient not expected to survive 24 hrs. (ruptured aneurysm) ASA 6: a declared brain- patient whose organs are being harvested. For emergent operations, add the letter E after the classification Mallampati Classification Grade 1 Sedation Plan Analgesia, Amnesia, Plan communicated to team members, Discussed options with patient/fam, Discussed risks with patient/fam The patient is an appropriate candidate to undergo the planned procedure, sedation, and anesthesia. The patient immediately re-assessed prior to indication. Penelope MORSE MD Apr 07, 2023 14:13
--- NOTE | 2023-04-07 14:17 | Cardiology Stress Test Report ---
Stress Test Report Type of NM Stress Test: Test Type: LEXISCAN 0.4MG/5ML Date of Procedure/Referring: Date of Procedure: Apr 07, 2023 PCP No,Local Physician Admitting Physician Admitting Physician: Lucinda Carrillo MD Attending Physician: Savannah Monteiro MD Indications: Chest pain, previous PCI Baseline Heart Rate: 64 Baseline Blood Pressure: Blood Pressure Systolic: 122 Blood Pressure Diastolic: 56 Baseline EKG: Baseline EKG: Sinus rhythm with left bundle Summary & Conclusion: Summary: The patient was brought to the stress lab after informed consent was taken. Stress test was performed according to the Lexiscan protocol. 0.4 mg of IV Lexiscan was given. Low-grade exercise was performed. Baseline EKG showed sinus rhythm at 64 BPM. Initial blood pressure was 129/70 mmHg. Maximum heart rate was 90 bpm and blood pressure 148/79 mmHg. Patient did not have any chest pain, arrhythmias or ST segment changes during the stress test. 10.02 mCi of Myoview were given for rest imaging and 32.7 mCi of Myoview given for stress imaging. Transient ischemic dilatation score 1.15 , EF 16 percent. Global hypokinesis. Anterior/apical/septal fixed defect with partial reversibility. SSS 17, SRS 6, SDS 10 Conclusion: Pharmacological stress test was negative for ischemia. Severely reduced LV systolic function with global hypokinesis. Anterior/apical/septal fixed defect with partial reversibility. Abnormal summed stress score. Coronary angiography is recommended. Penelope MORSE MD Apr 07, 2023 14:17
--- NOTE | 2023-04-07 15:01 | Progress Note - Hospitalist ---
Subjective HPI/CC On Admission Date Seen by Provider: Apr 07, 2023 Time Seen by Provider: 11:05 Pt is a 89yoCF with a PMH of CAD and stent, tobacco abuse, HLD who presented to the ER due to chest pain and right sided weakness. She states the right sided weakness started 3 days ago and she didn't think much of it but it has persist ent. She denies any specific deficits but that it's just not "up to par." She developed chest pain last night and then had right arm pain as well. She decided to seek evaluation in the ER today because it persistent. She did take a nitro and it helped. Given her risk factors decision was made to admit. Subjective/Events-last exam She is feeling better. She denies chest pain. Her weakness has resolved. She has no complaints and is asking when she can go home. Objective Exam Vital Signs Vital Signs Date Time Temp Pulse Resp B/P (MAP) Pulse Ox O2 Delivery O2 Flow Rate FiO2 04/07/23 13:00 76 04/07/23 11:31 36.1 12 122/56 (78) 97 Room Air Capillary Refill : Less Than 3 Seconds General Appearance: No Apparent Distress, WD/WN Respiratory: Lungs Clear, No Respiratory Distress Cardiovascular: Regular Rate, Rhythm, No Murmur Gastrointestinal: Normal Bowel Sounds, Soft Extremity: Normal Inspection, No Pedal Edema Neurologic/Psychiatric: Alert, Normal Mood/Affect Skin: Normal Color, Warm/Dry Results/Procedures Lab Laboratory Tests 04/07/23 05:01 Patient resulted labs reviewed. Imaging: Reviewed Imaging Report Assessment/Plan Assessment and Plan Assess & Plan/Chief Complaint Chest pain CAD with h/o of stents Acute HFrEF HLD HTN Troponin negative Cardiology following Stress test today negative for ischemia, reduced EF identified Left heart cath and echo recommended ASA, Plavix, Lipitor Right sided weakness No weakness on exam, symptoms resolved CT negative Carotid ultrasound ordered Continue ASA, Plavix, Lipitor Diagnosis/Problems Diagnosis/Problems (1) Chest pain Status: Acute (2) CAD (coronary artery disease) Status: Chronic (3) Acute HFrEF (heart failure with reduced ejection fraction) (4) HTN (hypertension) Status: Chronic (5) HLD (hyperlipidemia) Status: Chronic (6) Tobacco abuse Status: Chronic (7) Weakness of right upper extremity Status: Acute Clinical Quality Measures AMI/AHF: ASA po Prior to arrival: No Smoking Cessation Counseling: Counseling-Symptomatic: 3-10 Minutes ARUNA MORA MD Apr 07, 2023 15:01
[2023-04-07] MEDS ORDERED: TICAGRELOR 90 MG TABLET (BRILINTA) PO ONE (15:23)
--- NOTE | 2023-04-07 16:01 | Coronary Angiography & PCI ---
Coronary Angiography & PCI DATE OF PROCEDURE: 04/07/23 INDICATION: Chest pain, abnormal nuclear stress test, previous history of PCI. PREOPERATIVE DIAGNOSIS: Chest pain, abnormal nuclear stress test, previous history of PCI. POSTOPERATIVE DIAGNOSIS: Severe proximal LAD stenosis treated with a drug- eluting stent. HISTORY: This is a 68-year-old lady who has previous history of PCI. She is an active smoker. She presented with prolonged episode of chest pain. Serial troponins were negative. Nuclear stress test showed partial reversibility defect in the anterior, septal, apical area. Therefore, the patient was scheduled for coronary angiography. PROCEDURES PERFORMED: 1.Coronary angiography. 2.Left heart catheterization. 3.IFR to the LAD 4. PCI to the proximal LAD. COMPLICATIONS: None. SPECIMENS: None. ESTIMATED BLOOD LOSS: 10 mL ANESTHESIA: Conscious sedation ANTICOAGULATION: IV heparin CONTRAST: 205 ml. FLUOROSCOPY: 14.6 minutes FLOUROSCOPY DOSE: 883 mgy. PROCEDURE DETAILS: The patient is a 68 female and was brought to the denture laboratory technician after informed consent was taken. All the risks and complications were explained in detail; this included the risk of bleeding, vascular damage, stroke, NC and even . The patient was draped and prepped in the usual sterile fashion. Access was gained in the right femoral artery with a 6 [place] sheath. Coronary angiography and left heart catheterization was performed with the JR4, JL4. FINDINGS: 1.Left main: Patent. 2.LAD: Severe proximal stenosis. Stenosis severity of over 90%. Stenosis includes proximal LAD and extends into the proximal part of a previous Stent. Bridging noted distally. 3.Left circumflex artery: Mild disease. 4.RCA: Totally occluded mid RCA with right to right collaterals. Also supplied by [id number] collaterals.There is a stent in the mid to distal RCA which is occluded. 5.Left heart catheterization: Aortic pressure 122/58 mmHg. LV pressure 106/4 mmHg. LVEDP 9 mmHg. Severe LV systolic dysfunction with an EF of 20%. Global hypokinesis. No gradient across aortic valve. RECOMMENDATIONS: iFR and PCI to the LAD is recommended. INTERVENTION DETAILS: EBU 3.5 guide catheter. iFR wire. 5000 of heparin was given. We crossed the lesion in the LAD and placed a IFR wire in the distal LAD. IFR reading was 0.79 which is severe.Patient was given 180 mg of Brilinta. Further 3000 heparin was given. ACT was over 250 seconds. We first did ballooning with a 2.5 x 15 mm balloon at 14 kamran. We then placed a 2.75 x 18 mm drug-eluting stent in the proximal LAD extending into the overlap area of the proximal part of the previous stent.16 kamran for 30 seconds.Overlap area was postdilated with the same stent balloon at 18 kamran for 30 seconds.Excellent post angiographic result with 0% residual stenosis. ROSIBEL-3 flow. Spasm/Bridging noted distally. Responded to nitroglycerin. Minx closure to the RFA. Patient left the Civil Engineer'S Aide with stable hemodynamics. CONCLUSIONS: 1. Severe proximal LAD stenosis treated with a drug-eluting stent. 2. RCA MECHANICAL PLANNER. Will defer to primary director of recruitment 3. Severe LV systolic dysfunction. Will recommend an echocardiogram. If EF is below 35%; LifeVest for primary prevention of sudden cardiac . 4. Dual antiplatelet therapy with Brilinta for at least a year. 5. Smoking cessation was strongly recommended. Ady Kent MD, FACP, FACC, [facility] Interventional Cardiology Penelope KENT MD Apr 07, 2023 16:01
[2023-04-07] MEDS ORDERED: PATIENT MAY USE OWN MEDS, ALL PO SCH (16:15)
[2023-04-07] MEDS: NS IV 1000 ML 1,000 ML IV SCH ×2 (18:56→22:55)
--- NOTE | 2023-04-07 20:22 | Diagnostic Imaging Report ---
PROCEDURE: US carotid duplex, bilateral. INDICATION: Weakness, history tobacco use. Dizziness. TECHNIQUE: Multiple real-time grayscale images were obtained over the carotid arteries in various projections bilaterally. Additional spectral analysis and color Doppler and Duplex images were also obtained. FINDINGS: Color images demonstrate mild to moderate scattered plaque formation. This is most pronounced at the level of the carotid bifurcations. Right Carotid System: Right Common Carotid Artery: Patent. There is no abnormally elevated velocity to suggest a hemodynamically significant stenosis. Right Internal Carotid Artery: Patent. There is no abnormally elevated velocity to suggest a hemodynamically significant stenosis. Right External Carotid Artery: Patent. Left Carotid System: Left Common Carotid Artery: Patent. There is no abnormally elevated velocity to suggest a hemodynamically significant stenosis. Left Internal Carotid Artery: Patent. There is no abnormally elevated velocity to suggest a hemodynamically significant stenosis. Left External Carotid Artery: Patent. Vertebral arteries: Patent and with antegrade direction of flow. DOPPLER (peak systolic velocity M/S Right Left CCA 0.78 0.68 ICA Proximal 0.68 0.75 ICA Mid 0.70 0.66 ICA Distal 0.63 0.68 RATIO 0.91 1.11 ECA 1.19 0.90 VERT 0.48 0.28 IMPRESSION: 1. Mild to moderate atherosclerosis involving bilateral carotid arteries, particularly carotid bulbs. 2. No hemodynamically significant stenosis of the internal carotid arteries at this time. Parameters based on the consensus panel Meneses-Scale and Doppler ultrasound criteria published August 2003, Radiology, Volume 229. Dictated by: Dictated on workstation # [id number]
[2023-04-07] MEDS ORDERED: NICOTINE 21 MG (NICODERM) PATCH ONE (20:41)
[2023-04-07] MEDS: NICOTINE 21 MG (NICODERM) PATCH TD SCH (20:43)
[2023-04-07] MEDS ORDERED: MELATONIN 3 MG TABLET PO PRN (20:45)
[2023-04-07] MEDS ORDERED: HYDROcodone/APAP 5 MG/325 MG (LORTAB) TAB PO PRN (20:45)
[2023-04-07] MEDS ORDERED: DOCUSATE SODIUM 100 MG (COLACE) CAP PO PRN (20:45)
[2023-04-07] MEDS ORDERED: LOPERAMIDE 2 MG (IMODIUM) TABLET PO PRN (20:45)
[2023-04-07] MEDS ORDERED: LACTULOSE SYRUP 10GM/15ML (ENULOSE) 30ML UDC PO PRN (20:45)
[2023-04-07] MEDS ORDERED: CALCIUM CARBONATE 500 MG (TUMS) TAB.CHEW PO PRN (20:45)
[2023-04-07] MEDS ORDERED: ALPRAZolam 0.25 MG (XANAX) TAB PO PRN (20:45)
[2023-04-07] MEDS ORDERED: diphenhydrAMINE 25 MG TAB (BENADRYL) PO PRN (20:45)
[2023-04-07] MEDS: TICAGRELOR 90 MG TABLET (BRILINTA) PO SCH (21:41)
[2023-04-07] MEDS: SENNA W/DOCUSATE (SENOKOT S) TABLET PO SCH (21:51)
[2023-04-07] MEDS: polyethylene glycoL POWDER 17 GM (MIRALAX) PACK PO SCH (21:51)
[2023-04-08] VITALS (8 sets, daily range): BP systolic 97–138; BP diastolic 53–71
[2023-04-08 05:23] LABS: HEMATOCRIT 44 % (35-52); HEMOGLOBIN 15.2 g/dL (11.5-16.0); MEAN CORPUSCULAR HEMOGLOBIN 32 pg (25-34); MEAN CORPUSCULAR HGB CONC 35 g/dL (32-36); MEAN CORPUSCULAR VOLUME 92 fL (80-99); MEAN PLATELET VOLUME 10.2 fL (9.0-12.2); PLATELET COUNT 220 10^3/uL (130-400); WHITE BLOOD COUNT 9.1 10^3/uL (4.3-11.0)
[2023-04-08 05:52] LABS: POTASSIUM 3.6 MMOL/L (3.6-5.0)
[2023-04-08 05:53] LABS: CALCIUM 8.9 MG/DL (8.5-10.1)
[2023-04-08 05:57] LABS: CREATININE SERUM 0.8 MG/DL (0.60-1.30)
[2023-04-08] MEDS ORDERED: ONDANSETRON 4 MG (ZOFRAN) ORAL DISSOLVE TAB SL PRN (06:15)
[2023-04-08] MEDS ORDERED: ONDANSETRON 4 MG/2 ML (SDV) Z0FRAN IV PRN (06:15)
[2023-04-08] MEDS ORDERED: ZIPRASIDONE 20 MG INJ (GEODON) VIAL IM ONE (06:15)
[2023-04-08] MEDS ORDERED: LORazepam INJ 2 MG/ML (ATIVAN) VIAL IV PRN (06:15)
[2023-04-08] MEDS ORDERED: ZIPRASIDONE 20 MG INJ (GEODON) VIAL IM PRN (06:15)
[2023-04-08] MEDS ORDERED: SENNA W/DOCUSATE (SENOKOT S) TABLET PO PRN (06:15)
[2023-04-08] MEDS ORDERED: LORazepam INJ 2 MG/ML (ATIVAN) VIAL IM/IV PRN (06:15)
[2023-04-08] MEDS ORDERED: LORazepam 1 MG (ATIVAN) TAB PO PRN (06:15)
[2023-04-08] MEDS ORDERED: ANTACID SUSP 30 ML UDC (MYLANTA) PO PRN (06:15)
[2023-04-08] MEDS ORDERED: 1/2 NS IV SOLUTION 1,000 ML IV PRN (06:15)
[2023-04-08] MEDS ORDERED: D5 1/2 NS 1000 ML IV SOLUTION 1,000 ML IV PRN (06:15)
[2023-04-08] MEDS ORDERED: WATER (STERILE) FOR INJ 10 ML BTL INJ SCH ×2 (06:15)
--- NOTE | 2023-04-08 06:45 | Diagnostic Imaging Report ---
EXAMINATION: CT head without contrast. TECHNIQUE: Multiple contiguous axial images were obtained through the brain without the use of intravenous contrast. All CT scans use one or more of the following dose optimizing techniques: automated exposure control, MA and/or KvP adjustment based on patient size and exam type or iterative reconstruction. HISTORY: Confusion COMPARISON: 04/06/2023 FINDINGS: The ventricles and sulci are normal. No abnormal attenuation of brain parenchyma is present. No acute intracranial hemorrhage or abnormal extra-axial fluid collections are present. Calcification of the intracranial ICAs. No hyperdense vessel. The calvarium is intact. The mastoid air cells are clear. The visualized paranasal sinuses are clear. The orbits are normal. IMPRESSION: 1. No acute intracranial abnormality. Dictated by: Dictated on workstation # [id number]
[2023-04-08 06:48] LABS: TOTAL PROTEIN 6.6 GM/DL (6.4-8.2)
[2023-04-08 06:50] LABS: BILIRUBIN,TOTAL 0.7 MG/DL (0.1-1.0)
[2023-04-08 06:54] LABS: BILIRUBIN,DIRECT 0.3 MG/DL (0.0-0.3); BILIRUBIN,INDIRECT 0.4 MG/DL
[2023-04-08 07:13] LABS: ABG BASE EXCESS -5.5 MMOL/L (-2.5-2.5); ABG OXYGEN SATURATION 98 % (94-100); ABG PCO2 27 MMHG (35-45); ABG PH 7.43 (7.37-7.43); ABG PO2 81 MMHG (79-93); ABG TCO2 18.9 MMOL/L (21.0-31.0)
[2023-04-08 07:14] LABS: INSPIRED O2 ROOM AIR; PATIENT TEMP 36.4; VENTILATOR NO
--- NOTE | 2023-04-08 08:05 | Cardiology Progress Note ---
Subjective Date Seen by Provider: Apr 08, 2023 Time Seen by Provider: 08:03 Subjective/Events-last exam Patient was seen at bedside, laying down comfortably, feeling better. Review of Systems General: No Chills, No Night Sweats, No Fatigue, No Malaise, No Appetite, No Other HEENT: No Head Aches, No Visual Changes, No Eye Pain, No Ear Pain, No Dysphasia, No Sinus Congestion, No Post Nasal Drip, No Sore Throat, No Other Pulmonary: No Dyspnea, No Cough, No Pleuritic Chest Pain, No Other Cardiovascular: No: Chest Pain, Palpitations, Orthopnea, Paroxysmal Noc. Dyspnea, Edema, Lt Headedness, Other Objective-Cardiology Exam Last Set of Vital Signs Vital Signs 04/07/23 04/08/23 20:24 04:00 Temp 36.1 Pulse 87 Resp 15 B/P (MAP) 107/61 (76) Pulse Ox 97 O2 Delivery Room Air I&O Intake and Output 04/08/23 00:00 Intake Total 100 ml Output Total 1000 ml Balance -900 ml Intake Oral 100 ml Output Urine Total 1000 ml General: Alert, Oriented X3, Cooperative HEENT: Atraumatic, PERRLA Neck: Supple, No JVD, No Thyromegaly Lungs: Clear to Auscultation, Normal Air Movement Heart: Regular Rate, Normal S1, Normal S2, No Murmurs Abdomen: Normal Bowel Sounds, Soft, No Tenderness, No Hepatosplenomegaly, No Masses Extremities: No Clubbing, No Cyanosis, No Edema, Normal Pulses, No Tenderness/Swelling Skin: No Rashes, No Breakdown, No Significant Lesion Neuro: Normal Gait, Normal Speech, Strength at 5/5 X4 Ext, Normal Tone, Sensation Intact Psych/Mental Status: Mental Status NL, Mood NL Results Lab Laboratory Tests 04/08/23 04:10 A/P-Cardiology Admission Diagnosis Chest pain Coronary artery disease Congestive heart failure, dilated cardiomyopathy ischemic, chronic compensated l eft ventricular systolic dysfunction Tobaccoism Assessment/Plan Chest pain nonspecific etiology, reporting improvement Continue to monitor Coronary artery disease, status post cardiac catheterization done by Dr. Kent Stenting to the LAD and LIVING SUPERVISOR of the right coronary artery Continue on aspirin and Brilinta Congestive heart failure, chronic compensated left ventricular systolic dysfunction, dilated cardiomyopathy with ejection fraction 35% During stress test ejection fraction 16% Planning for LifeVest Arrange for follow-up with primary hydroelectric station chief Active smoking, educated on smoking cessation Right-sided weakness, CT of the head was negative Managed by medical team JUAN J DOTSON MD Apr 08, 2023 08:05
[2023-04-08] MEDS: LOSARTAN 25 MG (COZAAR) TAB PO SCH (09:15)
[2023-04-08] MEDS: EMPAGLIFLOZIN 10 MG TABLET (JARDIANCE) PO SCH (09:15)
[2023-04-08] MEDS: TICAGRELOR 90 MG TABLET (BRILINTA) PO SCH ×2 (09:17→21:08)
[2023-04-08] MEDS: ASPIRIN E.C. 81 MG (ECOTRIN) TAB PO SCH (09:17)
[2023-04-08] MEDS: SENNA W/DOCUSATE (SENOKOT S) TABLET PO SCH ×2 (09:17→21:08)
[2023-04-08] MEDS: THIAMINE INJECTION 100 MG, FOLIC ACID INJECTION 1 MG, MAGNESIUM SULFATE 2 GM, VITAMIN M... IV SCH ×10 (09:18→17:00)
[2023-04-08] MEDS: NICOTINE 21 MG (NICODERM) PATCH TD SCH (09:22)
[2023-04-08] MEDS: polyethylene glycoL POWDER 17 GM (MIRALAX) PACK PO SCH ×2 (09:25→21:05)
[2023-04-08] MEDS: amLODIPine 5 MG (NORVASC) TAB PO SCH (09:25)
[2023-04-08] MEDS: ENOXAPARIN 40 MG/0.4 ML (LOVENOX) SYR SC SCH (09:27)
[2023-04-08] MEDS ORDERED: LOSA25TA41 PO (09:42)
[2023-04-08] MEDS ORDERED: CARV3.122 PO (09:42)
[2023-04-08] MEDS ORDERED: EMPA10TA PO (09:42)
[2023-04-08] MEDS ORDERED: TICA90TA PO (09:42)
[2023-04-08] MEDS ORDERED: ASPI-1238 PO (09:42)
[2023-04-08] MEDS: NS IV 1000 ML 1,000 ML IV SCH (10:53)
--- NOTE | 2023-04-08 16:44 | Progress Note - Hospitalist ---
Subjective HPI/CC On Admission Date Seen by Provider: Apr 08, 2023 Time Seen by Provider: 09:00 Pt is a 89yoCF with a PMH of CAD and stent, tobacco abuse, HLD who presented to the ER due to chest pain and right sided weakness. She states the right sided weakness started 3 days ago and she didn't think much of it but it has persist ent. She denies any specific deficits but that it's just not "up to par." She developed chest pain last night and then had right arm pain as well. She decided to seek evaluation in the ER today because it persistent. She did take a nitro and it helped. Given her risk factors decision was made to admit. Subjective/Events-last exam She is feeling better. She denies chest pain. She denies shortness of breath. She has no complaints. Objective Exam Vital Signs Vital Signs Date Time Temp Pulse Resp B/P (MAP) Pulse Ox O2 Delivery O2 Flow Rate FiO2 04/08/23 16:00 67 97/56 (70) 96 Room Air 04/08/23 11:33 36.4 17 Capillary Refill : Less Than 3 Seconds General Appearance: No Apparent Distress, WD/WN Respiratory: Lungs Clear, No Respiratory Distress Cardiovascular: Regular Rate, Rhythm, No Murmur Gastrointestinal: Normal Bowel Sounds, Soft Extremity: Normal Inspection, No Pedal Edema Neurologic/Psychiatric: Alert, Normal Mood/Affect Skin: Normal Color, Warm/Dry Results/Procedures Lab Laboratory Tests 04/08/23 04:10 Patient resulted labs reviewed. Imaging: Reviewed Imaging Report Assessment/Plan Assessment and Plan Assess & Plan/Chief Complaint Unstable angina CAD with h/o of stents Acute HFrEF Ischemic cardiomyopathy HLD HTN Cardiology following Left heart cath with LAD blockage, stent placed Echo with EF 20-25% Awaiting LifeVest ASA, Brilinta, Lipitor Losartan, Coreg, Jardiance Right sided weakness Likely due to coronary blockage Resolved Diagnosis/Problems Diagnosis/Problems (1) Chest pain Status: Acute (2) CAD (coronary artery disease) Status: Chronic Qualifiers: Coronary Disease-Associated Artery/Lesion type: [place] artery [place] vs. transplanted heart: [place] heart Associated angina: with unstable angina Qualified Codes: I25.110 - Atherosclerotic heart disease of [place] coronary artery with unstable angina pectoris (3) Acute HFrEF (heart failure with reduced ejection fraction) Status: Acute (4) HTN (hypertension) Status: Chronic (5) HLD (hyperlipidemia) Status: Chronic (6) Tobacco abuse Status: Chronic (7) Weakness of right upper extremity Status: Acute (8) Ischemic cardiomyopathy Clinical Quality Measures AMI/AHF: ASA po Prior to arrival: No Smoking Cessation Counseling: Counseling-Symptomatic: 3-10 Minutes ARUNA MORA MD Apr 08, 2023 16:44
[2023-04-09] MEDS: NS IV 1000 ML 1,000 ML IV SCH ×2 (01:10→08:10)
[2023-04-09 03:46] VITALS: BP 97/61
[2023-04-09 05:28] LABS: HEMATOCRIT 41 % (35-52); HEMOGLOBIN 14.3 g/dL (11.5-16.0); MEAN CORPUSCULAR HEMOGLOBIN 32 pg (25-34); MEAN CORPUSCULAR HGB CONC 35 g/dL (32-36); MEAN CORPUSCULAR VOLUME 94 fL (80-99); MEAN PLATELET VOLUME 9.9 fL (9.0-12.2); PLATELET COUNT 197 10^3/uL (130-400); WHITE BLOOD COUNT 8.1 10^3/uL (4.3-11.0)
[2023-04-09 05:56] LABS: CALCIUM 8.4 MG/DL (8.5-10.1); CREATININE SERUM 0.83 MG/DL (0.60-1.30); POTASSIUM 3.8 MMOL/L (3.6-5.0)
[2023-04-09 07:25] VITALS: BP 119/79
[2023-04-09] MEDS: LOSARTAN 25 MG (COZAAR) TAB PO SCH (08:10)
[2023-04-09] MEDS: EMPAGLIFLOZIN 10 MG TABLET (JARDIANCE) PO SCH (08:10)
[2023-04-09] MEDS: ASPIRIN E.C. 81 MG (ECOTRIN) TAB PO SCH (08:10)
[2023-04-09] MEDS: TICAGRELOR 90 MG TABLET (BRILINTA) PO SCH (08:10)
[2023-04-09] MEDS: NICOTINE 21 MG (NICODERM) PATCH TD SCH (08:12)
[2023-04-09] MEDS: amLODIPine 5 MG (NORVASC) TAB PO SCH (08:13)
[2023-04-09] MEDS: polyethylene glycoL POWDER 17 GM (MIRALAX) PACK PO SCH (08:17)
[2023-04-09] MEDS: SENNA W/DOCUSATE (SENOKOT S) TABLET PO SCH (08:17)
[2023-04-09] MEDS: ENOXAPARIN 40 MG/0.4 ML (LOVENOX) SYR SC SCH (08:17)
--- NOTE | 2023-04-09 10:56 | Cardiology Progress Note ---
Subjective Date Seen by Provider: Apr 09, 2023 Time Seen by Provider: 08:50 Subjective/Events-last exam Patient is up walking around in room. Lifevest has been fitted and in place. Denies any chest pain Objective-Cardiology Exam Last Set of Vital Signs Vital Signs 04/09/23 04/09/23 07:25 08:00 Temp 36.8 Pulse 66 Resp 18 B/P (MAP) 119/79 (92) Pulse Ox 97 O2 Delivery Room Air I&O Intake and Output 04/09/23 00:00 Intake Total 1375 ml Output Total 250 ml Balance 1125 ml Intake Oral 875 ml IV Total 500 ml Output Urine Total 250 ml # Voids 4 General: Alert, Oriented X3, Cooperative HEENT: Atraumatic, PERRLA Neck: Supple, No JVD, No Thyromegaly Lungs: Clear to Auscultation, Normal Air Movement Heart: Regular Rate, Normal S1, Normal S2, No Murmurs Abdomen: Normal Bowel Sounds, Soft, No Tenderness, No Hepatosplenomegaly, No Masses Extremities: No Clubbing, No Cyanosis, No Edema, Normal Pulses, No Tend erness/Swelling Skin: No Rashes, No Breakdown, No Significant Lesion Neuro: Normal Gait, Normal Speech, Strength at 5/5 X4 Ext, Normal Tone, Sensation Intact Psych/Mental Status: Mental Status NL, Mood NL Results Lab Laboratory Tests 04/09/23 05:15 A/P-Cardiology Admission Diagnosis Chest pain Coronary artery disease Congestive heart failure, dilated cardiomyopathy ischemic, chronic compensated left ventricular systolic dysfunction Tobaccoism Assessment/Plan Chest pain nonspecific etiology, reporting improvement Continue to monitor Coronary artery disease, status post cardiac catheterization done by Dr. Kent Stenting to the LAD and CASE RESOURCE MANAGER of the right coronary artery Continue on aspirin and Brilinta Congestive heart failure, chronic compensated left ventricular systolic dysfunction, dilated cardiomyopathy with ejection fraction 35% During stress test ejection fraction 16% Currently wearing LifeVest Arrange for follow-up with primary land acquisition analyst Active smoking, educated on smoking cessation Right-sided weakness, CT of the head was negative Managed by medical team Supervisory-Addendum Brief Supervisory Addendum Participated in pt care: history, MDM, physical Personally performed: exam, history, MDM Care discussed with: TRACEY Results interpretation: Verified all documentation Notes: Patient was seen and evaluated with Sue, examination performed, management plan was discussed, agree with the current scribed note, I made few changes to the note using Italic font Patient was seen at bedside, laying down comfortably Had her LifeVest on, ready for discharge Educated about compliance with medication She will follow-up with Dr. Mosley her primary land acquisition analyst as an outpatient Monitor blood pressure Okay for discharge SUE DUCKWORTH Apr 09, 2023 10:56 JUAN J DOTSON MD Apr 09, 2023 11:16
--- NOTE | 2023-04-09 13:00 | Discharge Summary ---
Discharge Summary Hospital Course Problems/Dx: (1) Chest pain Status: Acute (2) CAD (coronary artery disease) Status: Chronic Qualifiers: Qualified Codes: I25.110 - Atherosclerotic heart disease of [place] coronary artery with unstable angina pectoris (3) Acute HFrEF (heart failure with reduced ejection fraction) Status: Acute (4) HTN (hypertension) Status: Chronic (5) HLD (hyperlipidemia) Status: Chronic (6) Tobacco abuse Status: Chronic (7) Weakness of right upper extremity Status: Acute (8) Ischemic cardiomyopathy Hospital Course Date of Admission: Apr 06, 2023 at 11:18 Admission Diagnosis : Chest pain Family Physician/Provider: SuzyLocal Physician Date of Discharge: 04/09/23 Discharge Diagnosis: Unstable angina Hospital Course: Sugey Gentile is a 68 year old female who presented with chest pain. Cardiology was consulted and assisted with her care. Her troponins and EKG remained normal. She had a stress test and then a left heart cath which revealed a blockage of her LAD and a stent was placed. She was started on Aspirin and Brilinta. She was continued on Lipitor. She also had ischemic cardiomyopathy with reduced EF 20-2 5%. She was started on Losartan, Coreg, and Jardiance. She was set up with a LifeVest. She did not have a PCP and was set to follow up with Dr. Duncan. She will follow up with Dr. Mosley in a few weeks. She was discharged home in stable condition. Labs and Pending Lab Test: Laboratory Tests 04/09/23 05:15: White Blood Count 8.1, Red Blood Count 4.43, Hemoglobin 14.3, Hematocrit 41, Mean Corpuscular Volume 94, Mean Corpuscular Hemoglobin 32, Mean Corpuscular Hemoglobin Concent 35, Red Cell Distribution Width 11.8, Platelet Count 197, Mean Platelet Volume 9.9, Sodium Level 143, Potassium Level 3.8, Chloride Level 115H, Carbon Dioxide Level 22, Anion Gap 6, Blood Urea Nitrogen 10, Creatinine 0.83, Estimat Glomerular Filtration Rate 77, BUN/Creatinine Ratio 12, Glucose Level 95, Calcium Level 8.4L Home Meds Active Jardiance (Empagliflozin) 10 Mg Tablet 10 Mg PO DAILY 30 Days Aspirin EC (Aspirin) 81 Mg Tablet.dr 81 Mg PO DAILY 30 Days Losartan Potassium 25 Mg Tablet 25 Mg PO DAILY 30 Days Carvedilol 3.125 Mg Tablet 3.125 Mg PO BID 30 Days Brilinta (Ticagrelor) 90 Mg Tablet 90 Mg PO BID 30 Days Reported Amlodipine Besylate 5 Mg Tablet 2.5 Mg PO DAILY TAKES OF A 5MG LAST FILLED 08-16-2022 #45/90 DAY SUPPLY Nitroglycerin 0.4 Mg Tab.subl 0.4 Mg PO PRN Atorvastatin Calcium 40 Mg Tablet 40 Mg PO DAILY Assessment/Pt Instructions See instructions Discharge Planning: >30 minutes discharge planning Discharge Instructions Discharge Diet: Low Sodium Diet Activity as Tolerated: Yes Consultations Cardiology Discharge Physical Examination Vital Signs Vital Signs Date Time Temp Pulse Resp B/P (MAP) Pulse Ox O2 Delivery O2 Flow Rate FiO2 04/09/23 10:33 04/09/23 08:00 97 Room Air 04/09/23 07:25 36.8 66 18 General Appearance: No Apparent Distress, WD/WN Respiratory: Lungs Clear, No Respiratory Distress Cardiovascular: Regular Rate, Rhythm, No Murmur Gastrointestinal: Normal Bowel Sounds, Soft Extremity: Normal Inspection, No Pedal Edema Skin: Normal Color, Warm/Dry Neurologic/Psychiatric: Alert, Normal Mood/Affect Allergies: Coded Allergies: No Known Drug Allergies (Unverified , 04/06/23) Copy Copies To 1: AJAY DUNCAN DO Discharge Summary Date of Admission Apr 06, 2023 at 11:18 Date of Discharge Apr 09, 2023 at 10:33 Discharge Date: Apr 09, 2023 Discharge Time: 10:33 Admission Diagnosis Chest pain Consults/Procedures Consulations Cardiology Procedures Left heart cath and coronary stenting Discharge Diagnosis Unstable angina CAD with h/o of stents Acute HFrEF Ischemic cardiomyopathy HLD HTN Right sided weakness (1) Chest pain Status: Acute (2) CAD (coronary artery disease) Status: Chronic Qualifiers: Qualified Codes: I25.110 - Atherosclerotic heart disease of [place] coronary artery with unstable angina pectoris (3) Acute HFrEF (heart failure with reduced ejection fraction) Status: Acute (4) HTN (hypertension) Status: Chronic (5) HLD (hyperlipidemia) Status: Chronic (6) Tobacco abuse Status: Chronic (7) Weakness of right upper extremity Status: Acute (8) Ischemic cardiomyopathy Clinical Quality Measures AMI/AHF: ASA po Prior to arrival: No Smoking Cessation Counseling: Counseling-Symptomatic: 3-10 Minutes ARUNA MORA MD Apr 09, 2023 12:59
== END 2023-04-09 10:33 | disposition home or self-care (01) ==
LOC: ER 09:18 → CSD 11:18
PROVIDERS: ADMIT Family Medicine; ATTEND Internal Medicine
DX: I25.110 Atherosclerotic heart disease of native coronary artery with unstable angina pectoris (principal); I11.0 Hypertensive heart disease with heart failure; I50.21 Acute systolic (congestive) heart failure; I25.5 Ischemic cardiomyopathy; E78.5 Hyperlipidemia, unspecified; R53.1 Weakness; I42.0 Dilated cardiomyopathy; F17.210 Nicotine dependence, cigarettes, uncomplicated; Z79.82 Long term (current) use of aspirin; Z95.5 Presence of coronary angioplasty implant and graft; Z79.899 Other long term (current) drug therapy
CPT/HCPCS: 36415; 36600; 70450; 71045; 78452; 80048; 80053; 80061; 80076; 82140; 82805; 83735; 84484; 85025; 85027; 85379; 85610; 85730; 93005; 93017; 93041; 93306; 93458; 93880; 96361; 96375

== ENCOUNTER 2023-06-21 14:27 | Observation (INO) | payer MEDICARE ==
[~2023-06-21] VITALS: Ht 152.4 cm; Wt 45.5 kg
[~2023-06-21 14:27] MED LIST: AMLO-250 PO; ASPI-1238 PO; ATOR40TA70 PO; CARV3.122 PO; CLOP75TA28 PO; EMPA10TA PO; LOSA25TA41 PO; NITR0.4T42 PO; TICA90TA PO
[2023-06-21 14:54] LABS: BASOPHILS # (AUTO) 0.1 10^3/uL (0.0-0.1); BASOPHILS % (AUTO) 1 % (0-10); EOSINOPHILS # (AUTO) 0.1 10^3/uL (0.0-0.3); EOSINOPHILS % (AUTO) 1 % (0-10); HEMATOCRIT 45 % (35-52); HEMOGLOBIN 15.8 g/dL (11.5-16.0); LYMPHOCYTES % (AUTO) 19 % (12-44); MEAN CORPUSCULAR HEMOGLOBIN 33 pg (25-34); MEAN CORPUSCULAR HGB CONC 35 g/dL (32-36); MEAN CORPUSCULAR VOLUME 94 fL (80-99); MEAN PLATELET VOLUME 9.7 fL (9.0-12.2); MONOCYTES # (AUTO) 0.7 10^3/uL (0.0-1.0); MONOCYTES % (AUTO) 6 % (0-12); NEUTROPHILS # (AUTO) 7.8 10^3/uL (1.8-7.8); NEUTROPHILS % (AUTO) 73 % (42-75); PLATELET COUNT 282 10^3/uL (130-400); WHITE BLOOD COUNT 10.7 10^3/uL (4.3-11.0)
--- NOTE | 2023-06-21 14:56 | ED Respiratory ---
General Chief Complaint: Respiratory Problems Stated Complaint: DIZZINESS/SOA Nursing Triage Note: PT ARRIVED POV WITH LIFE VEST AND CC OF SOB, DIZZINESS, AND NAUSEA 3X DAYS AND HAD AN INCREASE IN SEVERITY LAST NIGHT. PT HAS CARDIAC HX Source: patient, family Exam Limitations: no limitations History of Present Illness Date Seen by Provider: Jun 21, 2023 Time Seen by Provider: 14:32 Initial Comments Here with report of shortness of breath and dizziness as well as nausea over the past couple of days but worse since yesterday. Patient reports that this all started yesterday but daughter reports that she has been trying to get her to come to the hospital for 3 days. Daughter reports that the patient gets short of breath with walking even 3 steps. She does have cardiac history and was seen here in March and had cardiac cath with stent placement as noted in progress section and that report was reviewed. She subsequently followed up with Dr. Fina ag in [place] has a LifeVest on currently. She may need defibrillator depending on EF. Patient has history of low EF and records review report from March of this year shows that she has EF of 20 to 25%. They are apparently seeing if the stenting will improve cardiac function. Patient has had some nausea, vomiting, dizziness and the shortness of breath but denies fever, chills, sore throat, runny nose or significant cough. She does continue to smoke cigarettes and does have a mild cough with that but that is unchanged per the patient but patient's daughter reports that the cough started 2 days ago and has worsened.. No reported weight gain and denies swelling of her legs. Reports taking her medications as directed and the daughter does fill her med box and ensures that she does take her medicines. The daughter reports the patient does have forgetfulness but seems to be getting a little worse. This has been going on for several years. Timing/Duration: getting worse, other (3 days) Severity: moderate Modifying Factors: Worse With Activity Associated Symptoms: chest pain/soreness (Episode of a few small anterior nonradiating chest pains intermittently over the last 24 hours.), cough; No fever/chills, No nasal congestion; shortness of breath; No sore throat Allergies and Home Medications Allergies Coded Allergies: No Known Drug Allergies (Unverified , 04/06/23) Patient Home Medication List Home Medication List Reviewed: Yes Amlodipine Besylate (Amlodipine Besylate) 5 Mg Tablet, 2.5 MG PO DAILY, (Reported) Entered as Reported by: AREN LOUIS on 04/06/23 1447 Aspirin (Aspirin EC) 81 Mg Tablet.dr, 81 MG PO DAILY Prescribed by: ARUNA MORA on 04/08/23 09 Atorvastatin Calcium (Atorvastatin Calcium) 40 Mg Tablet, 40 MG PO DAILY, (Reported) Entered as Reported by: AREN LOUIS on 04/06/23 1429 Carvedilol (Carvedilol) 3.125 Mg Tablet, 3.125 MG PO BID Prescribed by: ARUNA MORA on 04/08/23941 Empagliflozin (Jardiance) 10 Mg Tablet, 10 MG PO DAILY Prescribed by: ARUNA MORA on 04/08/23941 Losartan Potassium (Losartan Potassium) 25 Mg Tablet, 25 MG PO DAILY Prescribed by: ARUNA MORA on 04/08/23941 Nitroglycerin (Nitroglycerin) 0.4 Mg Tab.subl, 0.4 MG PO for CHEST PAIN (ANGINA), (Reported) Entered as Reported by: AREN LOUIS on 04/06/23 142 Ticagrelor (Brilinta) 90 Mg Tablet, 90 MG PO BID Prescribed by: ARUNA MORA on 04/08/23941 Review of Systems Review of Systems Constitutional: see HPI; No chills; dizziness; No fever EENTM: No nose congestion, No throat pain Respiratory: cough, short of breath Cardiovascular: chest pain; No edema; Hx of Intervention Gastrointestinal: nausea, vomiting Genitourinary: no symptoms reported Musculoskeletal: no symptoms reported Skin: no symptoms reported Psychiatric/Neurological: Anxiety Past Yuzkdyu-Ltgkrk-Zcbjjp Hx Patient Social History Tobacco Use?: Yes Tobacco type used: Cigarettes Substance use?: No Alcohol Use?: No Past Medical History Surgery/Hospitalization HX: [facility], Surgeries: Yes Coronary Stent Respiratory: Yes Chronic Bronchitis Cardiac: Yes Coronary Artery Disease, High Cholesterol Family Medical History Reviewed Nursing Family Hx No Pertinent Family Hx Physical Exam Vital Signs - First Documented 06/21/23 14:35 Temp 36.6 Pulse 86 B/P (MAP) 138/81 (100) Pulse Ox 97 O2 Delivery Room Air Capillary Refill : Height: '" Weight: lbs. oz. kg; 19.00 BMI Method: General Appearance: WD/WN, moderate distress, thin HEENT: PERRL/EOMI, pharynx normal, other (Nasal congestion with clear rhinorrhea) Neck: full range of motion, supple Respiratory: No crackles; wheezing (Scattered wheezes) Cardiovascular: regular rate, rhythm, no murmur Gastrointestinal: non tender, soft Extremities: non-tender, normal inspection Neurologic/Psychiatric: alert, oriented x 3 Skin: normal color, warm/dry Progress/Results/Core Measures Suspected Sepsis SIRS Temperature: Pulse: 86 Respiratory Rate: Laboratory Tests 06/21/23 14:39: White Blood Count 10.7 Blood Pressure 138 /81 Mean: 100 Laboratory Tests 06/21/23 14:39: Creatinine 0.78, INR Comment 1.1, Platelet Count 282, Total Bilirubin 1.2H Results/Orders Lab Results Laboratory Tests Test 06/21/23 14:39 06/21/23 14:41 06/21/23 15:18 Range/Units White Blood Count 10.7 4.3-11.0 10^3/uL Red Blood Count 4.82 3.80-5.11 10^6/uL Hemoglobin 15.8 11.5-16.0 g/dL Hematocrit 45 35-52 % Mean Corpuscular Volume 94 80-99 fL Mean Corpuscular Hemoglobin 33 25-34 pg Mean Corpuscular Hemoglobin Concent 35 32-36 g/dL Red Cell Distribution Width 12.0 10.0-14.5 % Platelet Count 282 130-400 10^3/uL Mean Platelet Volume 9.7 9.0-12.2 fL Immature Granulocyte % (Auto) 0 % Neutrophils (%) (Auto) 73 42-75 % Lymphocytes (%) (Auto) 19 12-44 % Monocytes (%) (Auto) 6 0-12 % Eosinophils (%) (Auto) 1 0-10 % Basophils (%) (Auto) 1 0-10 % Neutrophils # (Auto) 7.8 1.8-7.8 10^3/uL Lymphocytes # (Auto) 2.0 1.0-4.0 10^3/uL Monocytes # (Auto) 0.7 0.0-1.0 10^3/uL Eosinophils # (Auto) 0.1 0.0-0.3 10^3/uL Basophils # (Auto) 0.1 0.0-0.1 10^3/uL Immature Granulocyte # (Auto) 0.0 0.0-0.1 10^3/uL Prothrombin Time 14.0 12.2-14.7 SEC INR Comment 1.1 0.8-1.4 Activated Partial Thromboplast Time 28 24-35 SEC Sodium Level 139 135-145 MMOL/L Potassium Level 4.0 3.6-5.0 MMOL/L Chloride Level 109 H 98-107 MMOL/L Carbon Dioxide Level 18 L 21-32 MMOL/L Anion Gap 12 5-14 MMOL/L Blood Urea Nitrogen 12 7-18 MG/DL Creatinine 0.78 0.60-1.30 MG/DL Estimat Glomerular Filtration Rate 83 BUN/Creatinine Ratio 15 Glucose Level 93 70-105 MG/DL Calcium Level 9.8 8.5-10.1 MG/DL Corrected Calcium 9.7 8.5-10.1 MG/DL Magnesium Level 2.0 1.6-2.4 MG/DL Total Bilirubin 1.2 H 0.1-1.0 MG/DL Aspartate Amino Transf (AST/SGOT) 19 5-34 U/L Alanine Aminotransferase (ALT/SGPT) 17 0-55 U/L Alkaline Phosphatase 97 40-136 U/L Myoglobin 44.5 10.0-92.0 NG/ML Troponin I < 0.028 <0.028 NG/ML B-Type Natriuretic Peptide 833.8 H <100.0 PG/ML Total Protein 6.9 6.4-8.2 GM/DL Albumin 4.1 3.2-4.5 GM/DL Influenza Type A (RT-PCR) Not Detected Not Detecte Influenza Type B (RT-PCR) Not Detected Not Detecte SARS-CoV-2 RNA (RT-PCR) Not Detected Not Detecte Urine Color YELLOW Urine Clarity SL CLOUDY Urine pH 6.5 5-9 Urine Specific [place] 1.010 L 1.016-1.022 Urine Protein NEGATIVE NEGATIVE Urine Glucose (UA) NEGATIVE NEGATIVE Urine Ketones 1+ H NEGATIVE Urine Nitrite POSITIVE H NEGATIVE Urine Bilirubin NEGATIVE NEGATIVE Urine Urobilinogen 1.0 < = 1.0 MG/DL Urine Leukocyte Esterase NEGATIVE NEGATIVE Urine RBC (Auto) NEGATIVE NEGATIVE Urine RBC NONE /HPF Urine WBC RARE /HPF Urine Squamous Epithelial Cells NONE /HPF Urine Crystals NONE /LPF Urine Bacteria LARGE H /HPF Urine Casts NONE /LPF Urine Mucus NEGATIVE /LPF Urine Culture Indicated YES My Orders Orders - TEJON,FREDY D MD Ekg Tracing (06/21/23 14:43) Cbc With Automated Diff (06/21/23 14:46) Magnesium (06/21/23 14:46) Chest 1 View, Ap/Pa Only (06/21/23 14:46) Ekg Tracing (06/21/23 14:46) Comprehensive Metabolic Panel (06/21/23 14:46) Myoglobin Serum (06/21/23 14:46) Protime With Inr (06/21/23 14:46) Partial Thromboplastin Time (06/21/23 14:46) O2 (06/21/23 14:46) Monitor-Rhythm Ecg Trace Only (06/21/23 14:46) Lipid Panel (06/22/23 06:00) Ed Iv/Invasive Line Start (06/21/23 14:46) Bnp Owen (06/21/23 14:46) Troponin I Tash (06/21/23 14:46) Aspirin Chewable Tablet (Aspirin Chewabl (06/21/23 15:00) Covid 19 Inhouse Test (06/21/23 14:56) Influenza A And B By Pcr (06/21/23 14:56) Ua Culture If Indicated (06/21/23 15:15) Urine Culture (06/21/23 15:18) Ceftriaxone Iv/Im (Ceftriaxone Iv/Im) (06/21/23 16:02) Medications Given in ED Current Medications Medications Dose Ordered Sig/Javy Route Start Time Stop Time Status Last Admin Dose Admin Aspirin 324 mg ONCE ONCE PO 06/21/23 15:00 06/21/23 15:01 DC 06/21/23 14:55 324 MG Vital Signs/I&O 06/21/23 06/21/23 14:35 14:35 Temp 36.6 Pulse 86 B/P (MAP) 138/81 (100) Pulse Ox 97 O2 Delivery Room Air Room Air Capillary Refill : Blood Pressure Mean: 100 Progress Note : Progress Note Seen and evaluated. We will initiate chest pain protocol due to report of chest pain. We will also check COVID and influenza screen due to cough. Patient is afebrile. We will check CBC, CMP, troponin, myoglobin, EKG and chest x-ray. ASA 324 mg p.o. She apparently is on dual antiplatelet therapy with Brilinta and aspirin. O2 sats okay on room air with sats at 96 to 97%. I have reviewed echocardiogram done in March of this year which showed EF of 20 to 25%. Patient did have Field Clerk procedure and note summary as below but did have intervention as reported by the patient. She is currently on a LifeVest. Differential diagnosis includes cardiac event, heart failure, electrolyte abnormality, viral etiology 532: The chest x-ray shows hyperinflation of lungs without obvious infiltrate or significant pulmonary vascular congestion on my interpretation. See radiology report for details. CBC is normal throughout. CMP grossly normal with negative troponin and myoglobin. BNP is elevated at over 800. Coags are normal. We are still pending UA which was added and COVID and influenza testing. 604: COVID and influenza are negative. UA is nitrate positive concerning for urinary tract infection. Given her elevated BNP but negative troponin, her history of heart failure and her significant cardiac past, admission for observation at least would be indicated. I did discuss this with Dr. Mora, hospitalist on-call and he accepts patient for admission, observation status with consult to cardiology. I have already discussed the case with Dr. Kent, on-call for cardiology who also is the one that did her heart cath in March. He will see the patient in the ER and we will discuss further treatment. He accepts patient for consult. This was discussed with patient and family who agree with admission. While patient does have a urinary tract infection, she has no findings of sepsis and has normal white count without fever. No indication for blood cultures or lactic acid at this point and this was discussed with Dr. Mora who agrees. Heart cath summary from March, CONCLUSIONS: 1. Severe proximal LAD stenosis treated with a drug-eluting stent. 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 Severe LV systolic dysfunction. Will recommend an echocardiogram. If EF is below 35%; LifeVest for primary prevention of sudden cardiac . 4. Dual antiplatelet therapy with Brilinta for at least a year. 5. Smoking cessation was strongly recommended. ECG Initial ECG Impression Date: Jun 21, 2023 Initial ECG Impression Time: 14:44 Initial ECG Rate: 75 Initial ECG Rhythm: Normal Sinus Comment Sinus rhythm with left axis deviation and left atrial abnormality with left bundle branch block. No evidence of ST elevation [place]. Interpreted by me. Diagnostic Imaging Diagonstic Imaging: Xray Plain Films/CT/US/NM/MRI: chest Comments [facility]. [place], [place] NAME: SHERICE PÉREZ [facility] REC#: [id number] PT STATUS: REG ER : 1955 PHYSICIAN: FREDY ALEXANDER MD ADMIT DATE: 06/21/23/ER Draft Date of Exam:06/21/23 CHEST 1 VIEW, AP/PA ONLY INDICATION: Chest pain. COMPARISON: 04/06/2023. FINDINGS: Hyperinflated lungs are unchanged from prior examination with no finding of new airspace consolidation or pneumonia. There is no effusion or pneumothorax. Heart size is stable. There is a coronary stent. Pulmonary vascularity appears appropriate without current edema or failure. There are prominent pulmonary arteries which may relate to pulmonary arterial hypertension. IMPRESSION: Stable appearance of the chest. No new or acute cardiopulmonary process present. There is pulmonary hyperinflation and prominent pulmonary arteries suggesting pulmonary arterial hypertension. Dictated on workstation # [id number] Dict: 06/21/23 1516 Trans: 06/21/[address] [facility] [id number] Interpreted by: PIYUSH WEBB MD Electronically signed by: Departure Communication (Admissions) Time/Spoke to Admitting Phy: 16:04 Time/Spoke to Consulting Phy: 15:59 Impression Primary Impression: Acute on chronic heart failure Qualified Codes: I50.9 - Heart failure, unspecified Additional Impression: Urinary (tract) obstruction Disposition: ADMITTED INPATIENT Condition: Stable Admissions Decision to Admit Reason: Admit from ER (General) Decision to Admit/Date: Jun 21, 2023 Time/Decision to Admit Time: 15:59 Departure-Patient Inst. Referrals: AJAY DUNCAN DO (PCP) Primary Care Physician FREDY ALEXANDER MD Jun 21, 2023 14:56
[2023-06-21] MEDS ORDERED: ASPIRIN 81 MG CHEWABLE TABLET PO ONE (15:00)
[2023-06-21 15:01] LABS: INR 1.1 (0.8-1.4)
[2023-06-21 15:09] LABS: ALANINE AMINOTRANSFERASE 17 U/L (0-55); ALBUMIN 4.1 GM/DL (3.2-4.5); ALKALINE PHOSPHATASE 97 U/L (40-136); BILIRUBIN,TOTAL 1.2 MG/DL (0.1-1.0); BUN/CREATININE RATIO 15; CALCIUM 9.8 MG/DL (8.5-10.1); CARBON DIOXIDE 18 MMOL/L (21-32); CHLORIDE 109 MMOL/L (98-107); CREATININE SERUM 0.78 MG/DL (0.60-1.30); GFR ESTIMATED 83; GLUCOSE 93 MG/DL (70-105); SODIUM 139 MMOL/L (135-145); TOTAL PROTEIN 6.9 GM/DL (6.4-8.2)
--- NOTE | 2023-06-21 15:20 | Diagnostic Imaging Report ---
INDICATION: Chest pain. COMPARISON: 04/06/2023. FINDINGS: Hyperinflated lungs are unchanged from prior examination with no finding of new airspace consolidation or pneumonia. There is no effusion or pneumothorax. Heart size is stable. There is a coronary stent. Pulmonary vascularity appears appropriate without current edema or failure. There are prominent pulmonary arteries which may relate to pulmonary arterial hypertension. IMPRESSION: Stable appearance of the chest. No new or acute cardiopulmonary process present. There is pulmonary hyperinflation and prominent pulmonary arteries suggesting pulmonary arterial hypertension. Dictated by: Dictated on workstation # [id number]
[2023-06-21 15:39] LABS: CLARITY,URINE SL CLOUDY; COLOR,URINE YELLOW; GLUCOSE, URINE (UA) NEGATIVE (NEGATIVE); KETONES,URINE 1+ (NEGATIVE); PH,URINE 6.5 (5-9); PROTEIN,URINE NEGATIVE (NEGATIVE)
[2023-06-21 15:40] LABS: BACTERIA,URINE LARGE /HPF; BILIRUBIN,URINE NEGATIVE (NEGATIVE); LEUKOCYTE ESTERASE ,URINE NEGATIVE (NEGATIVE); NITRITE,URINE POSITIVE (NEGATIVE); WBC,URINE RARE /HPF
[2023-06-21] MEDS ORDERED: cefTRIAXone IV/IM 1,000 MG in NS (IVPB) 50 ML 50 ML IV STA (16:02)
--- NOTE | 2023-06-21 16:15 | Consultation-Cardiology ---
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 Previous PCI to the mid LAD. In March 2023 presented with unstable angina. Coronary angiography showed severe proximal LAD stenosis which was treated with a successful PCI. Patient did well and was discharged on a LifeVest for primary prevention of sudden cardiac . LV function was below 35%. She presents with shortness of breath worsening for the last few days. Diagnosed with acute on chronic systolic congestive heart failure, UTI. She is still awaiting a LifeVest Review of Systems-Cardiology Review of Systems Constitutional: no symptoms reported Eyes: no symptoms reported Ears/Nose/Throat: no symptoms reported Respiratory: shortness of breath Cardiovascular: edema Gastrointestinal: no symptoms reported Genitourinary: no symptoms reported Musculoskeletal: no symptoms reported Skin: no symptoms reported [id number] Hx Patient Social History Alcohol Use?: No Tobacco type used: Cigarettes Past Medical History PMH As described under Assessment. Allergies and Home Medications Allergies Coded Allergies: No Known Drug Allergies (Unverified , 04/06/23) Patient Home Medication List Home Medication List Reviewed: Yes Amlodipine Besylate (Amlodipine Besylate) 5 Mg Tablet, 2.5 MG PO DAILY, (Reported) Entered as Reported by: AREN LOUIS on 04/06/23 1447 Aspirin (Aspirin EC) 81 Mg Tablet.dr, 81 MG PO DAILY Prescribed by: ARUNA MORA on 04/08/23 0942 Atorvastatin Calcium (Atorvastatin Calcium) 40 Mg Tablet, 40 MG PO DAILY, (Repor maxim) Entered as Reported by: AREN LOUIS on 04/06/23 1429 Carvedilol (Carvedilol) 3.125 Mg Tablet, 3.125 MG PO BID Prescribed by: ARUNA MORA on 04/08/23 0942 Empagliflozin (Jardiance) 10 Mg Tablet, 10 MG PO DAILY Prescribed by: ARUNA MORA on 04/08/23 0942 Losartan Potassium (Losartan Potassium) 25 Mg Tablet, 25 MG PO DAILY Prescribed by: ARUNA MORA on 04/08/23 0942 Nitroglycerin (Nitroglycerin) 0.4 Mg Tab.subl, 0.4 MG PO for CHEST PAIN (ANGINA), (Reported) Entered as Reported by: AREN LOUIS on 04/06/23 1429 Ticagrelor (Brilinta) 90 Mg Tablet, 90 MG PO BID Prescribed by: ARUNA MORA on 04/08/23 0942 Exam Vital Signs Vital Signs Date Time Temp Pulse Resp B/P (MAP) Pulse Ox O2 Delivery O2 Flow Rate FiO2 06/21/23 16:56 68 102/65 97 Room Air 06/21/23 14:35 36.6 Physical Exam Constitutional: No respiratory distress. CVS: Regular rate and rhythm. No significant murmur. Chest: Clear to auscultation bilaterally. No significant pedal edema Normal neuro exam. Labs Laboratory Tests Test 06/21/23 14:39 06/21/23 14:41 06/21/23 15:18 Range/Units White Blood Count 10.7 4.3-11.0 10^3/uL Red Blood Count 4.82 3.80-5.11 10^6/uL Hemoglobin 15.8 11.5-16.0 g/dL Hematocrit 45 35-52 % Mean Corpuscular Volume 94 80-99 fL Mean Corpuscular Hemoglobin 33 25-34 pg Mean Corpuscular Hemoglobin Concent 35 32-36 g/dL Red Cell Distribution Width 12.0 10.0-14.5 % Platelet Count 282 130-400 10^3/uL Mean Platelet Volume 9.7 9.0-12.2 fL Immature Granulocyte % (Auto) 0 % Neutrophils (%) (Auto) 73 42-75 % Lymphocytes (%) (Auto) 19 12-44 % Monocytes (%) (Auto) 6 0-12 % Eosinophils (%) (Auto) 1 0-10 % Basophils (%) (Auto) 1 0-10 % Neutrophils # (Auto) 7.8 1.8-7.8 10^3/uL Lymphocytes # (Auto) 2.0 1.0-4.0 10^3/uL Monocytes # (Auto) 0.7 0.0-1.0 10^3/uL Eosinophils # (Auto) 0.1 0.0-0.3 10^3/uL Basophils # (Auto) 0.1 0.0-0.1 10^3/uL Immature Granulocyte # (Auto) 0.0 0.0-0.1 10^3/uL Prothrombin Time 14.0 12.2-14.7 SEC INR Comment 1.1 0.8-1.4 Activated Partial Thromboplast Time 28 24-35 SEC Sodium Level 139 135-145 MMOL/L Potassium Level 4.0 3.6-5.0 MMOL/L Chloride Level 109 H 98-107 MMOL/L Carbon Dioxide Level 18 L 21-32 MMOL/L Anion Gap 12 5-14 MMOL/L Blood Urea Nitrogen 12 7-18 MG/DL Creatinine 0.78 0.60-1.30 MG/DL Estimat Glomerular Filtration Rate 83 BUN/Creatinine Ratio 15 Glucose Level 93 70-105 MG/DL Calcium Level 9.8 8.5-10.1 MG/DL Corrected Calcium 9.7 8.5-10.1 MG/DL Magnesium Level 2.0 1.6-2.4 MG/DL Total Bilirubin 1.2 H 0.1-1.0 MG/DL Aspartate Amino Transf (AST/SGOT) 19 5-34 U/L Alanine Aminotransferase (ALT/SGPT) 17 0-55 U/L Alkaline Phosphatase 97 40-136 U/L Myoglobin 44.5 10.0-92.0 NG/ML Troponin I < 0.028 <0.028 NG/ML B-Type Natriuretic Peptide 833.8 H <100.0 PG/ML Total Protein 6.9 6.4-8.2 GM/DL Albumin 4.1 3.2-4.5 GM/DL Influenza Type A (RT-PCR) Not Detected Not Detecte Influenza Type B (RT-PCR) Not Detected Not Detecte SARS-CoV-2 RNA (RT-PCR) Not Detected Not Detecte Urine Color YELLOW Urine Clarity SL CLOUDY Urine pH 6.5 5-9 Urine Specific Dustin 1.010 L 1.016-1.022 Urine Protein NEGATIVE NEGATIVE Urine Glucose (UA) NEGATIVE NEGATIVE Urine Ketones 1+ H NEGATIVE Urine Nitrite POSITIVE H NEGATIVE Urine Bilirubin NEGATIVE NEGATIVE Urine Urobilinogen 1.0 < = 1.0 MG/DL Urine Leukocyte Esterase NEGATIVE NEGATIVE Urine RBC (Auto) NEGATIVE NEGATIVE Urine RBC NONE /HPF Urine WBC RARE /HPF Urine Squamous Epithelial Cells NONE /HPF Urine Crystals NONE /LPF Urine Bacteria LARGE H /HPF Urine Casts NONE /LPF Urine Mucus NEGATIVE /LPF Urine Culture Indicated YES ECG Impression ECG Initial ECG Rhythm: Normal Sinus Initial ECG Impression: Normal A/P-Cardiology Assessment/Admission Diagnosis Acute on chronic systolic congestive heart failure, Dilated ischemic cardiomyopathy, CAD, UTI, Active smoker Plan Acute on chronic systolic congestive heart failure, we will repeat an echocardiogram tomorrow morning. Give IV Lasix. Strict I/O's. Fluid restriction to 1.5 L. BNP 800. Dilated cardiomyopathy, continue goal-directed medical therapy. LifeVest for primary prevention of sudden cardiac . Repeat echocardiogram tomorrow. If EF is above 35% we can discontinue LifeVest. CAD, PCI to proximal LAD in March 2023. Patient denies chest pain. First troponin is negative. Compliance with Brilinta was again requested. UTI, defer to the primary team. Penelope MORSE MD Jun 21, 2023 16:15
[2023-06-21] MEDS ORDERED: FUROSEMIDE INJECTION 40 MG/4 ML VIAL IV STA (16:19)
[2023-06-21 17:39] VITALS: BP 138/81
[2023-06-21] MEDS ORDERED: RT-Ipratropium/Albuterol NEB 3 ML VIAL INH PRN (18:00)
[2023-06-21 19:44] VITALS: BP 92/58
[2023-06-21] MEDS ORDERED: CATHETER FLUSH 10 ML SYR IVP PRN (20:45)
[2023-06-21] MEDS: TICAGRELOR 90 MG TABLET (BRILINTA) PO SCH (22:14)
[2023-06-21] MEDS: CATHETER FLUSH 10 ML SYR IVP SCH (22:14)
[2023-06-21 23:29] VITALS: BP 96/56
[2023-06-22] MEDS ORDERED: ONDANSETRON INJECTION 4 MG/2 ML (SDV) IVP PRN (00:45)
[2023-06-22] MEDS ORDERED: CALCIUM CARBONATE 500 MG CHEW TABLET PO PRN (00:45)
[2023-06-22 03:41] VITALS: BP 104/65
[2023-06-22 04:55] LABS: BASOPHILS # (AUTO) 0.1 10^3/uL (0.0-0.1); BASOPHILS % (AUTO) 1 % (0-10); EOSINOPHILS # (AUTO) 0.2 10^3/uL (0.0-0.3); EOSINOPHILS % (AUTO) 2 % (0-10); HEMATOCRIT 42 % (35-52); HEMOGLOBIN 14.4 g/dL (11.5-16.0); LYMPHOCYTES # (AUTO) 2.7 10^3/uL (1.0-4.0); LYMPHOCYTES % (AUTO) 30 % (12-44); MEAN CORPUSCULAR HEMOGLOBIN 32 pg (25-34); MEAN CORPUSCULAR HGB CONC 34 g/dL (32-36); MEAN CORPUSCULAR VOLUME 94 fL (80-99); MEAN PLATELET VOLUME 9.8 fL (9.0-12.2); MONOCYTES # (AUTO) 0.8 10^3/uL (0.0-1.0); MONOCYTES % (AUTO) 9 % (0-12); NEUTROPHILS % (AUTO) 57 % (42-75); PLATELET COUNT 247 10^3/uL (130-400); WHITE BLOOD COUNT 8.8 10^3/uL (4.3-11.0)
[2023-06-22 05:14] LABS: CALCIUM 9.3 MG/DL (8.5-10.1); CREATININE SERUM 0.79 MG/DL (0.60-1.30); POTASSIUM 3.8 MMOL/L (3.6-5.0)
[2023-06-22] MEDS: FUROSEMIDE INJECTION 40 MG/4 ML VIAL IV SCH (06:08)
[2023-06-22] MEDS: CATHETER FLUSH 10 ML SYR IVP SCH ×3 (06:08→20:47)
[2023-06-22 08:22] VITALS: BP 90/50
[2023-06-22] MEDS: ASPIRIN 81 MG CHEWABLE TABLET PO SCH (08:39)
[2023-06-22] MEDS: TICAGRELOR 90 MG TABLET (BRILINTA) PO SCH ×2 (08:39→20:47)
[2023-06-22] MEDS ORDERED: ACETAMINOPHEN 325 MG TABLET PO PRN (09:45)
[2023-06-22] MEDS ORDERED: ONDANSETRON INJECTION 4 MG/2 ML (SDV) IV PRN (09:45)
[2023-06-22] MEDS ORDERED: BISACODYL 10 MG SUPPOSITORY PR PRN (09:45)
[2023-06-22] MEDS ORDERED: LACTULOSE SYRUP 10GM/15ML 30ML UDC PO PRN (09:45)
[2023-06-22] MEDS ORDERED: MILK OF MAGNESIA 400 MG/5 ML 30 ML UDC PO PRN (09:45)
[2023-06-22] MEDS ORDERED: ANTACID SUSPENSION 30 ML UDC PO PRN (09:45)
[2023-06-22] MEDS ORDERED: ONDANSETRON 4 MG ORAL DISSOLVE TABLET PO PRN (09:45)
[2023-06-22] MEDS ORDERED: MELATONIN 3 MG TABLET PO PRN (09:45)
[2023-06-22] MEDS ORDERED: NS IV 500 ML 500 ML IV PRN (09:45)
[2023-06-22] MEDS: ENOXAPARIN 40 MG/0.4 ML SYRINGE SC SCH (10:41)
[2023-06-22 11:25] VITALS: BP 94/55
--- NOTE | 2023-06-22 15:29 | History & Physical-Hospitalist ---
History of Present Illness HPI/Chief Complaint Sugey Gentile is a 68 year old female with PMH HTN, HLD, CAD, HFrEF, ischemic cardiomyopathy, who presented with shortness of breath. She also complains of cough. She denies swelling. She reports orthopnea and PND. She denies fevers and chills. She denies chest pain. She denies abdominal pain. She denies nausea and vomiting. She is wearing her LifeVest. Source: patient Exam Limitations: no limitations Date Seen 06/22/23 Time Seen by a Provider: 11:35 Attending Physician Malinda Hua DO PCP Admitting Physician: Aruna Mora MD Attending Physician: Aruna Mora MD Referring Physician Date of Admission Jun 21, 2023 at 16:39 Home Medications & Allergies Home Medications Reviewed patient Home Medication Reconciliation performed by pharmacy medication reconciliations orthotics technician and/or nursing. Patients Allergies have been reviewed. Allergies Allergies Coded Allergies No Known Drug Allergies (Unverified04/06/23) Past Qhilegr-Urhtie-Xkniwa Hx Patient Social History Tobacco Use?: Yes Tobacco type used: Cigars Smoking Status: Current Everyday Smoker Use of E-Cig and/or Vaping dev: No Substance use?: No Alcohol Use?: No Pt feels they are or have been: No Immunizations Up To Date Tetanus Booster (TDap): Unknown Hepatitis A: No Hepatitis B: No Current Status status: No Advance Directives: No Communicates: Verbally Primary Language: Emirati Preferred Spoken Language: Emirati Is interpretation needed?: No Past Medical History Surgeries: Coronary Stent Chronic Bronchitis Coronary Artery Disease, High Cholesterol Family Medical History Reviewed Nursing Family Hx No Pertinent Family Hx Review of Systems Constitutional: no symptoms reported Respiratory: cough, short of breath Cardiovascular: no symptoms reported Gastrointestinal: no symptoms reported Physical Exam Physical Exam Vital Signs Vital Signs - First Documented 06/21/23 06/21/23 06/21/23 14:35 17:39 19:44 Temp 36.6 Pulse 86 Resp 20 B/P (MAP) 138/81 (100) Pulse Ox 97 O2 Delivery Room Air FiO2 21 Capillary Refill : Height, Weight, BMI Height: '" Weight: lbs. oz. kg; 19.11 BMI Method: General Appearance: No Apparent Distress, WD/WN HEENT: PERRL/EOMI, Pharynx Normal Neck: Normal Inspection, Supple Respiratory: Lungs Clear, Normal Breath Sounds, No Respiratory Distress Cardiovascular: Regular Rate, Rhythm, No Edema, No Murmur Gastrointestinal: Normal Bowel Sounds, Non Tender, Soft Extremity: Normal Inspection, No Pedal Edema Neurologic/Psychiatric: Alert, Normal Mood/Affect Skin: Normal Color, Warm/Dry Results Results/Procedures Labs Laboratory Tests 06/21/23 14:39 06/22/23 04:33 Patient resulted labs reviewed. Imaging: Reviewed Imaging Report Assessment/Plan Admission Diagnosis Acute on chronic HFrEF Admission Status: Observation Assessment and Plan Acute on chronic HFrEF Ischemic cardiomyopathy CAD HTN HLD Cardiology following Not requiring supplemental oxygen Chest xray without acute abnormalities IV Lasix Echo pending UTI Urine culture with gram negative dannie Rocephin DVT prophylaxis: Lovenox Diagnosis/Problems Diagnosis/Problems (1) Acute on chronic heart failure Status: Acute Qualifiers: Heart failure type: unspecified Qualified Codes: I50.9 - Heart failure, unspecified (2) Ischemic cardiomyopathy Status: Acute (3) CAD (coronary artery disease) Status: Chronic (4) HTN (hypertension) Status: Chronic (5) HLD (hyperlipidemia) Status: Chronic (6) UTI (urinary tract infection) Status: Acute Clinical Quality Measures Smoking Cessation Counseling: Counseling-Symptomatic: 3-10 Minutes ARUNA MORA MD Jun 22, 2023 15:29
[2023-06-22] MEDS ORDERED: cefTRIAXone 1 GM/NS 50 ML IVPB IV SCH ×2 (16:00)
[2023-06-22 16:04] VITALS: BP 88/47
--- NOTE | 2023-06-22 17:29 | Cardiology Progress Note ---
Cardiology SOAP Progress Note Subjective: Significantly improved symptoms. Objective: I&O/Vital Signs 06/23/23 06/23/23 06/23/23 06/23/23 07:06 08:00 08:00 09:41 Temp 37.1 Pulse 82 74 Resp 18 B/P (MAP) 130/70 (90) Pulse Ox 98 97 O2 Delivery Room Air Room Air Room Air 06/23/23 10:42 Temp 37.1 Pulse 74 Resp 18 B/P (MAP) 130/70 Pulse Ox 97 O2 Delivery Room Air 06/23/23 00:00 Intake Total 1960 ml Balance 1960 ml Constitutional: AAO x 3 Respiratory: lungs clear to auscultation Cardiovascular: regular rate-rhythm, S1 and S2 Gastrointestional: soft Extremities: No pedal edema Neurologic/Psychiatric: no motor/sensory deficits, alert, normal mood/affect, oriented x 3 Skin: normal color Results/Procedures: Labs Laboratory Tests 06/23/23 05:50: Sodium Level 139, Potassium Level 3.8, Chloride Level 106, Carbon Dioxide Level 22, Anion Gap 11, Blood Urea Nitrogen 12, Creatinine 0.79, Estimat Glomerular Filtration Rate 82, BUN/Creatinine Ratio 15, Glucose Level 107H, Calcium Level 9.3, Magnesium Level 1.8 Microbiology 06/21/23 Urine Culture - Final, Complete Escherichia coli A/P: Assessment/Dx: Acute on chronic systolic congestive heart failure, Dilated ischemic cardiomyopathy, CAD, UTI, Active smoker Plan: Acute on chronic systolic congestive heart failure, Echocardiogram shows LVEF of 25%. Dilated cardiomyopathy. Give IV Lasix. Strict I/O's. Fluid restriction to 1.5 L. BNP 800. Dilated cardiomyopathy, continue goal-directed medical therapy. LifeVest for primary prevention of sudden cardiac . Continue LifeVest CAD, PCI to proximal LAD in March 2023. Patient denies chest pain. First t roponin is negative. Compliance with Brilinta was again requested. UTI, defer to the primary team. Clinical Quality Measures Smoking Cessation Counseling: Counseling-Symptomatic: 3-10 Minutes Penelope MORSE MD Jun 22, 2023 17:29
[2023-06-22 20:02] VITALS: BP 114/70
[2023-06-22] MEDS: DOCUSATE SODIUM 100 MG CAPSULE PO SCH (20:46)
[2023-06-22] MEDS: SENNOSIDES 8.6 MG TABLET PO SCH (20:46)
[2023-06-22 23:19] VITALS: BP 105/64
[2023-06-23 03:33] VITALS: BP 98/61
[2023-06-23] MEDS: FUROSEMIDE INJECTION 40 MG/4 ML VIAL IV SCH (05:55)
[2023-06-23] MEDS: CATHETER FLUSH 10 ML SYR IVP SCH (05:55)
[2023-06-23] MEDS ORDERED: POTASSIUM CHLORIDE 20 MEQ TABLET PO SCH (06:00)
[2023-06-23] MEDS ORDERED: POTASSIUM BICARB 20 MEQ effervescent TABLET PO SCH (06:00)
[2023-06-23] MEDS ORDERED: MAGNESIUM 1 GM/100 ML IVPB 100 ML IV SCH (06:00)
[2023-06-23] MEDS ORDERED: POTASSIUM CL 10MEQ/50ML IVPB 50 ML IV SCH (06:00)
[2023-06-23 07:34] LABS: CALCIUM 9.3 MG/DL (8.5-10.1); CREATININE SERUM 0.79 MG/DL (0.60-1.30); MAGNESIUM 1.8 MG/DL (1.6-2.4); POTASSIUM 3.8 MMOL/L (3.6-5.0)
[2023-06-23] MEDS: SENNOSIDES 8.6 MG TABLET PO SCH (09:17)
[2023-06-23] MEDS: DOCUSATE SODIUM 100 MG CAPSULE PO SCH (09:17)
[2023-06-23] MEDS: ASPIRIN 81 MG CHEWABLE TABLET PO SCH (09:17)
[2023-06-23] MEDS: ENOXAPARIN 40 MG/0.4 ML SYRINGE SC SCH (09:18)
[2023-06-23] MEDS: TICAGRELOR 90 MG TABLET (BRILINTA) PO SCH (09:22)
[2023-06-23] MEDS ORDERED: FURO-125 PO (09:24)
--- NOTE | 2023-06-23 09:26 | Discharge Inst-Simple/Standard ---
Discharge Inst-Standard Discharge Medications New, Converted or Re-Newed RX: Transmitted to Pharmacy Patient Instructions/Follow Up Plan of Care/Instructions/FU: Please continue to take your medications as written. Please follow up with your primary care doctor to follow up this hospital stay. Activity as Tolerated: Yes Discharge Diet: Low Sodium Diet, Cardiac Diet Return to The Hospital For: Chest pain, shortness of breath, fever, weakness, if you feel you are getting worse. LARISSA VERDIN MD Jun 23, 2023 09:26
--- NOTE | 2023-06-23 09:30 | Discharge Summary ---
Diagnosis/Chief Complaint Date of Admission Jun 21, 2023 at 16:39 Date of Discharge Admission Diagnosis Acute on chronic HFrEF Primary Care Discharge Diagnosis (1) Acute on chronic heart failure Status: Acute (2) Ischemic cardiomyopathy Status: Acute (3) CAD (coronary artery disease) Status: Chronic (4) HTN (hypertension) Status: Chronic (5) HLD (hyperlipidemia) Status: Chronic (6) UTI (urinary tract infection) Status: Acute Discharge Summary Discharge Physical Exam Allergies: Coded Allergies: No Known Drug Allergies (Unverified , 04/06/23) Vitals & I&Os Vital Signs Date Time Temp Pulse Resp B/P (MAP) Pulse Ox O2 Delivery O2 Flow Rate FiO2 06/23/23 08:00 98 Room Air 06/23/23 07:06 82 06/23/23 03:33 36.5 18 98/61 (73) 06/21/23 17:39 21 General Appearance: No Apparent Distress, Chronically ill, Thin Respiratory: Lungs Clear Cardiovascular: Regular Rate, Rhythm Neurologic/Psychiatric: Alert, Oriented x3 Hospital Course Patient was admitted to the hospital secondary to acutely decompensated systolic congestive heart failure. She was treated with IV diuretics and did well. She was seen by cardiology as well. Repeat echo showed persistently a decreased EF (20-25%) consistent with her echo from March. She does follow with Dr. Mosley and has a LifeVest in place. She was stable on room air with no chest pain or shortness of breath upon discharge. She was found incidentally to have a urinary tract infection and was treated with 3 days of Rocephin. She was discharged home at her request in stable and improved condition to follow-up with Dr. Mosley and with primary care physician of her choosing. Labs (last 24 hrs) Laboratory Tests 06/23/23 05:50: Sodium Level 139, Potassium Level 3.8, Chloride Level 106, Carbon Dioxide Level 22, Anion Gap 11, Blood Urea Nitrogen 12, Creatinine 0.79, Estimat Glomerular Filtration Rate 82, BUN/Creatinine Ratio 15, Glucose Level 107H, Calcium Level 9.3, Magnesium Level 1.8 Microbiology 06/21/23 Urine Culture - Preliminary, Resulted Gram Negative Bacillus 1 Patient resulted labs reviewed. Pending Labs Laboratory Tests 06/23/23 05:50: Sodium Level 139, Potassium Level 3.8, Chloride Level 106, Carbon Dioxide Level 22, Anion Gap 11, Blood Urea Nitrogen 12, Creatinine 0.79, Estimat Glomerular Filtration Rate 82, BUN/Creatinine Ratio 15, Glucose Level 107, Calcium Level 9.3, Magnesium Level 1.8 Imaging: Reviewed Imaging Report Discussion & Recommendations Discharge Planning: >30 minutes discharge planning Discharge Home Medications: Active Scripts Active Lasix (Furosemide) 20 Mg Tablet 20 Mg PO DAILY PRN Jardiance (Empagliflozin) 10 Mg Tablet 10 Mg PO DAILY 30 Days Aspirin EC (Aspirin) 81 Mg Tablet.dr 81 Mg PO DAILY 30 Days Losartan Potassium 25 Mg Tablet 25 Mg PO DAILY 30 Days Carvedilol 3.125 Mg Tablet 3.125 Mg PO BID 30 Days Brilinta (Ticagrelor) 90 Mg Tablet 90 Mg PO BID 30 Days Reported Amlodipine Besylate 5 Mg Tablet 2.5 Mg PO DAILY TAKES OF A 5MG LAST FILLED 08-16-2022 #45/90 DAY SUPPLY Nitroglycerin 0.4 Mg Tab.subl 0.4 Mg PO PRN Atorvastatin Calcium 40 Mg Tablet 40 Mg PO DAILY Instructions to patient/family Please see electronic discharge instructions given to patient. Clinical Quality Measures Smoking Cessation Counseling: Counseling-Symptomatic: 3-10 Minutes Problem Qualifiers (1) Acute on chronic heart failure: Heart failure type: unspecified Qualified Codes: I50.9 - Heart failure, unspecified LARISSA VERDIN MD Jun 23, 2023 09:30
[2023-06-23 09:41] VITALS: BP 130/70
[2023-06-23 10:42] VITALS: BP 130/70
== END 2023-06-23 11:00 | disposition home or self-care (01) ==
LOC: EDUNIT# 14:27 → ER 14:31 → 4TH 16:39 → INTOOBSV 16:39
PROVIDERS: ADMIT Internal Medicine; ATTEND Internal Medicine
DX: I11.0 Hypertensive heart disease with heart failure (principal); I50.23 Acute on chronic systolic (congestive) heart failure; I25.5 Ischemic cardiomyopathy; I25.10 Atherosclerotic heart disease of native coronary artery without angina pectoris; E78.5 Hyperlipidemia, unspecified; N39.0 Urinary tract infection, site not specified; I42.0 Dilated cardiomyopathy; F17.210 Nicotine dependence, cigarettes, uncomplicated; Z79.82 Long term (current) use of aspirin; Z79.899 Other long term (current) drug therapy
CPT/HCPCS: 71045; 80048 ×2; 80053; 80061; 81000; 83735 ×2; 83874; 83880; 84484; 85025 ×2; 85610; 85730; 87077; 87088; 87186; 87636; 93005; 93041; 94760; 96372 ×2; 96375; 96376 ×2; 99284; C8929; G0378; 36415; 93306